=== PATIENT | female | born 1965 | race Caucasian/White ===

== ENCOUNTER 2017-04-30 11:00 | Outpatient (CLI) | payer MEDICARE, MEDICAID ==
--- NOTE | 2017-04-30 14:06 | RAD ---
CERVICAL SPINE THREE VIEWS: HISTORY: Neck pain. FINDINGS: Anterior operative fixation is in place at the C5-6 level. Metallic markers associated with interbo dy fusion material within the confines of the disk space. Minimal degenerative retrolisthesis is pr esent with posterior osteophytes/disk complex. Mild reversal of the normal lordotic curvature is ap parent on the lateral view. Cervicothoracic junction is intact. IMPRESSION: Anterior operative fixation at the lower cervical spine. POS: ALISIA
== END 2017-04-30 11:01 | disposition home or self-care (01) ==
LOC: RAD 11:00 → TBSIIMAG 11:01
PROVIDERS: ATTEND Neurological Surgery
DX: M54.12 Radiculopathy, cervical region (principal); Z98.890 Other specified postprocedural states
CPT/HCPCS: 72040

== ENCOUNTER 2017-10-10 08:29 | Inpatient (IN) | payer MEDICARE, OTHER ==
[2017-10-10 09:07] LABS: Bilirubin Small (Negative); Blood, Urine Moderate (Negative); Clarity CLOUDY (Clear); Glucose, Urine (Dipstick) Negative (Negative); Leukocyte Negative (Negative); Nitrite Negative (Negative); Protein, Urine (Dipstick) Trace mg/dL (Neg-Trace); Specific Gravity, Urine 1.025 (1.002-1.036)
[2017-10-10 09:11] LABS: Pregnancy Test - Urine (BHCG) Negative (Negative); Pregu Control Background? CLEAR/WHITE (CLR/WHITE); Pregu Control Bar Appear? YES (CONTROL BAR); Specific Gravity 1.025 (1.002-1.036)
[2017-10-10 09:19] LABS: Pathc Cast-AUWi Flag 3.92 (0-2.49)
[2017-10-10 09:22] LABS: Bacteria/HPF 1+ HPF (None Seen); Hyaline Casts/LPF 0-3 HYALINE CAST LPF (0-3 Hyaline); RBC/HPF 0-3 HPF (0-3)
[2017-10-10 09:23] LABS: Manual Microscopic Reviewed? No Path Casts Seen; Renal Epithelial 0-3 HPF (0-3); Transitional Epithelial 0-3 HPF (0-3)
[2017-10-10 09:29] LABS: #Lymphocytes 1.8 thou/uL (1.20-3.40); #Monocytes 1.2 thou/uL (0.11-0.59); #Neutrophils 13.3 thou/uL (1.40-6.50); %Basophils 0.3 % (0.0-1.0); %Eosinophils 0.3 % (0.0-10.0); %Lymphocytes 10.8 % (21.0-51.0); %Monocytes 7.3 % (0.0-10.0); %Neutrophils 81.3 % (42.0-75.0); Hemoglobin 15.5 g/dL (12.0-16.0); Mean Corpuscular HGB CONC 33.5 g/dL (32.0-36.0); Mean Corpuscular Hemoglobin 30.8 pg (27.0-31.0); Mean Corpuscular Volume 91.9 fl (81.0-99.0); Platelet Count 227 thou/uL (130-400); RBC Distribution Width 12.8 % (11.5-14.5); Red Blood Cell (RBC) Count 5.05 mill/uL (4.20-5.40); White Blood Cell (WBC) Count 16.4 thou/uL (4.8-10.8)
[2017-10-10 09:37] LABS: BHCG - Serum Negative (NEGATIVE); Pregs Control Background? CLEAR/WHITE (CLR/WHITE); Pregs Control Bar Appear? YES (CONTROL BAR)
[2017-10-10] MEDS ORDERED: Morphine 4 MG/ML VIAL ONE (09:45)
[2017-10-10 09:49] LABS: CKMB 0.7 ng/mL (0-6.6); Troponin I Less than 0.010 ng/mL (< 0.028)
[2017-10-10] MEDS ORDERED: metroNIDAZOLE 500 MG/100 ML BAG ONE (09:56)
--- NOTE | 2017-10-10 10:46 | CT ---
CONTRAST ENHANCED CT IMAGES OF ABDOMEN AND PELVIS: HISTORY: This 51-year-old presents with a history of diffuse abdominal pain. FINDINGS: Contrast-enhanced CT images of the abdomen and pelvis were obtained. IV contrast was given. The lung bases are unremarkable. No evidence of free intraperitoneal air is seen. The liver and spleen, gallbladder, and pancreas are unremarkable. Adrenal glands and kidneys are unr emarkable. There is extensive inflammatory change and thickening with surrounding pericolonic fat stranding invo lving the ascending colon, entire transverse colon, splenic flexure, and proximal portion of the desc ending colon. This is compatible with colitis. The small bowel is unremarkable. A normal appendix is visualized. Good blood flow is seen in the SM A and celiac and inferior mesenteric arteries. IMPRESSION: Extensive colonic thickening and fat stranding involving much of the proximal and mid colon compatibl e with colitis. Findings called to Dr. Jonas in the emergency room department at 9:38 a.m. on 10/10/17. CODE CR POS: ALISIA
[2017-10-10] MEDS ORDERED: Sodium Chloride 0.9% 1,000 ML IV SCH (11:43)
[2017-10-10] MEDS ORDERED: Ondansetron ODT 4 MG TAB SL PRN (11:43)
[2017-10-10] MEDS ORDERED: Ondansetron HCl/PF 4 MG/2 ML Vial IVP PRN ×2 (11:43→13:08)
[2017-10-10] MEDS ORDERED: Acetaminophen/Codeine 30-300mg Tablet PO PRN (13:08)
[2017-10-10] MEDS ORDERED: Acetaminophen 325 MG TAB PO PRN (13:08)
[2017-10-10] MEDS ORDERED: Guaifenesin DM 100-10/5 ML UDCUP PO PRN (13:08)
[2017-10-10] MEDS: Sodium Chloride 0.9% 1,000 ML IV SCH (13:28)
[2017-10-10] MEDS: Ondansetron ODT 4 MG TAB PO PRN ×2 (13:36→19:48)
[2017-10-10 13:38] VITALS: BMI 42.5
[2017-10-10] MEDS ORDERED: metroNIDAZOLE 500 MG in Premix Bag 1 BAG IVPB SCH ×2 (14:00→18:00)
--- NOTE | 2017-10-10 14:08 | HP ---
REASON FOR ADMISSION: Colitis. HISTORY OF PRESENT ILLNESS: The patient gives history of having abdominal pain which started 2 days back. This is more in the upper quadrants, but now has moved to all four quadrants. The pain was co nstant 4-5/10 in intensity but went up to 10/10 this morning. She has had one episode of vomiting ye day, but none today. She has felt feverish with chills. No complaints of chest pain, palpitatio n, PND or orthopnea. Had one loose stool this morning with no blood or mucus in it. PAST MEDICAL AND SURGICAL HISTORY: History of fibromyalgia, history of aneurysm in the brain for i ch she closely follows up with Dr. Fernandez, hypertension, obesity, anterior cervical diskectomy and fus ion of C5-C6 done in 02/2017, right knee replacement and tubal ligation. CURRENT MEDICATIONS: Protonix 40 mg p.o. at bedtime, Savella 100 mg p.o. daily, metoprolol extended release 50 mg p.o. daily, Soma p.r.n., Amitiza 8 mcg p.r.n., Tylenol with Codeine #3 at bedtime, Vent chantell inhaler q.4 hourly p.r.n. ALLERGIES: DICLOFENAC, LISINOPRIL, TIZANIDINE, ULTRAM. PERSONAL HISTORY: Smokes 5-6 cigarettes a day. Does not abuse alcohol or drugs. FAMILY HISTORY: Mother in her 60s. She was on dialysis. She does not know much about her [facility] er who apparently when she was 3 months old from liver complications. REVIEW OF SYSTEMS: The following complete review of systems was negative, unless otherwise mentioned in the HPI or below: Constitutional: Weight loss or gain, ability to conduct usual activities. Skin: Rash, itching. Eyes: Double vision, pain. ENT/Mouth: Nose bleeding, neck stiffness, pain, tenderness. Cardiovascular: Palpitations, dyspnea on exertion, orthopnea. Respiratory: Shortness of breath, wheezing, cough, hemoptysis, fever or night sweats. Gastrointestinal: Poor appetite, abdominal pain, heartburn, nausea, vomiting, constipation, or diarr hea. Genitourinary: Urgency, frequency, dysuria, nocturia. Musculoskeletal: Pain, swelling. Neurologic/Psychiatric: Anxiety, depression. Allergy/Immunologic: Skin rash, bleeding tendency. PHYSICAL EXAMINATION: GENERAL: The patient is a 51-year-old female who is currently in mild to moderate distress from abdo martin pain. VITAL SIGNS: Blood pressure 134/66, pulse 90 per minute, respiratory rate 18 per minute, temperature 97.9 degrees Fahrenheit, and saturating 98% on room air. NECK: Supple, no elevated JVD. EYES: Extraocular muscles intact. Pupils reacting to light. ORAL CAVITY: Mucous membranes are dry. No exudates or congestion. CARDIOVASCULAR SYSTEM: S1, S2 heard. Regular rhythm. RESPIRATORY SYSTEM: Air entry 1+ bilaterally. No rales or rhonchi. ABDOMEN: Soft. There is mild tenderness in all quadrants. No rigidity or guarding. Patient has vo luntary guarding. Bowel sounds are heard. EXTREMITIES: No peripheral edema or calf tenderness. VASCULAR SYSTEM: Peripheral pulses 1+ bilateral, no ischemic ulcerations or gangrene. CENTRAL NERVOUS SYSTEM: No gross focal deficits seen. Patient is alert, awake, oriented well. PSYCHIATRIC SYSTEM: The patient's mood is euthymic. No hallucinations or delusions. IMAGING DATA AND LABORATORY DATA: EKG done shows sinus rhythm at 102 beats per minute. White count of 16 , hemoglobin and hematocrit 15 and 46, platelet count 227, MCV is 91 with 81% neutrophils, lact ic acid 1.3. First set of cardiac enzymes are negative. Lipase is 15. test is negative. UA shows 1+ bacteria. CT of the abdomen and pelvis done shows extensive colonic thickening and fat stranding involving much of the proximal and mid colon compatible with colitis. CLINICAL IMPRESSION AND PLAN: The patient will be admitted to telemetry for acute colitis. Her init ial EKG was apparently suspicious for atrial flutter, but appears to be in sinus rhythm. We will obt ain blood cultures and stool cultures. She will be placed on Cipro and Flagyl for now and gentle IV hydration. The patient will be on clear liquid diet until her abdominal pain resolves. GI consultat ion with Dr. Thompson will be requested. The patient is requesting a higher dose of morphine or better p ain medication. She has received 8 mg of morphine in the ER with very little relief for her pain. W e will continue to closely monitor her on telemetry for today and will be transferred to [facility] in a.m. if her telemetry does not reveal any arrhythmias.
[2017-10-10 14:32] LABS: Anion Gap 15 mmol/L (10-20); BUN (Urea Nitrogen) 12 mg/dL (7.0-18.7); Calc. Creatinine Clearance 179 mL/min (70-130); Carbon Dioxide 22 mmol/L (22-29); Chloride 103 mmol/L (98-107); Estimated GFR-MDRD 90; Glucose 104 mg/dL (70-105); Sodium 136 mmol/L (136-145)
[2017-10-10] MEDS: Ketorolac Tromethamine 30 MG/ML VIAL IVP PRN ×2 (14:37→21:22)
[2017-10-10] MEDS: Morphine 4 MG/ML VIAL SLOW IVP PRN ×2 (15:33→21:19)
[2017-10-10] MEDS ORDERED: ISOVUE-370 76%-LOCM 1 ML ONE (16:31)
[2017-10-10] MEDS: metroNIDAZOLE 500 MG in Premix Bag 1 BAG IVPB SCH (17:10)
--- NOTE | 2017-10-10 18:31 | CON ---
DATE OF CONSULTATION: 10/10/2017. PRIMARY PILOT MANAGER: Vicki Porter M.D. REASON FOR CONSULTATION: Atrial flutter. HISTORY OF PRESENT ILLNESS: Ms. Silva is a very pleasant 51-year-old white female who comes to the ospital for abdominal pain. She was diagnosed with acute colitis and admitted for this. During her admission, an EKG was done that was suspicious for atrial flutter, so Cardiology has been consulted f or this. On my evaluation, Ms. Silva is an antalgic position. She does not even want to move becaus e she is hurting so much in her belly. She had seen Dr. Porter and follows up with her for episodes of palpitations and high blood pressure. She has never been monitored as she had refused monitoring in the past. PAST MEDICAL HISTORY: 1. Fibromyalgia. 2. Brain aneurysm, followed by Dr. Fernandez. 3. Hypertension. 4. Obesity. PAST SURGICAL HISTORY: 1. Cervical diskectomy fusion of C5-C6. 2. Right knee replacement. 3. Tubal ligation. OUTPATIENT MEDICATIONS: 1. Protonix 40 mg a day. 2. Savella 100 mg daily. 3. Metoprolol 50 mg daily. 4. Soma p.r.n. 5. Amitiza. 6. Tylenol with codeine p.r.n. 7. Ventolin inhaler. ALLERGIES: 1. DICLOFENAC. 2. LISINOPRIL. 3. TIZANIDINE. 4. ULTRAM. SOCIAL HISTORY: 5-6 cigarettes a day. No alcohol or drug use. FAMILY HISTORY: Mother with dialysis done in her 60s. Father of liver issues. REVIEW OF SYSTEMS: A 12-point review of systems was done and is all negative unless stated in the h istory of present illness. PHYSICAL EXAMINATION: VITAL SIGNS: Temperature 98.7, pulse 98, respiration rate 16, satting 99% on room air, blood pressur e 138/58. GENERAL: Awake, alert, oriented x3, in no distress. HEENT: Normocephalic and atraumatic. NECK: Supple. LUNGS: Lungs are clear. CARDIOVASCULAR: S1, S2, no S3, S4, no murmurs, no rubs, no gallop. ABDOMEN: Abdomen is tender to palpation with no rebound or guarding. Positive bowel sounds. EXTREMITIES: No edema. SKIN: Warm and dry. LABORATORY WORK: Reviewed. CBC with a white count of 16, 81% neutrophils. Chemistries were unremar kable. Troponin less than assay limit x1. Amylase was 20, lipase was 15. test was negati ve. UA showed moderate blood, trace ketones, small amount of bilirubin, 7-10 white cells, 7-10 squam ous epithelial cells, 1+ bacteria. The EKGs that I was able to review in the chart are all of sinus rhythm and sinus tachycardia. I hav e not seen one with atrial flutter. Other EKGs may not be in the chart at this time, but so far neit her telemetry nor the EKGs that I have been able to see have shown atrial flutter. ASSESSMENT AND PLAN: 1. Tachycardia: Sinus tachycardia on EKG on telemetry. No evidence of flutter on the EKGs reviewed . May need to find EKGs that were referred to as possibly being in atrial flutter to further evaluat e. 2. Acute colitis per primary team. Thank you for letting us to participate in the care of your patient. We will follow.
[2017-10-10] MEDS ORDERED: GoLYTELY 4,000 ml Bottle PO SCH (19:00)
[2017-10-10] MEDS: Docusate 100 MG CAP PO SCH (20:07)
[2017-10-10] MEDS ORDERED: MILNACIPRAN HCL 100 MG PO SCH (21:00)
[2017-10-10] MEDS: Famotidine 20 MG TAB PO SCH (21:17)
[2017-10-10] MEDS: Metoprolol Tartrate 50 MG TAB PO SCH (21:18)
[2017-10-10] MEDS ORDERED: Promethazine HCl 12.5 MG in Sodium Chloride 0.9% 50 ML IVPB SCH (23:00)
--- NOTE | 2017-10-11 00:19 | CON ---
DATE OF CONSULTATION: 10/10/2017 HISTORY OF PRESENT ILLNESS: Patient is a 51-year-old female who presents with a 48-hour hi story of abdominal pain. She says this is all over, there involves both upper and lower abdomen. Jeremiah nguyen says it radiates through to her back. She has had no nausea, vomiting, really no change in her bow el function. Her baseline bowel function is typically loose stools, alternating with hard stools. S he has had no blood in her stool. She denies any travel outside the country, any recent antibiotics. She has not had prior GI problems, no prior GI evaluation. She takes Tylenol No.3 for chronic lowe r back pain. PAST MEDICAL HISTORY: Includes fibromyalgia, brain aneurysm, hypertension, obesity. PAST SURGICAL HISTORY: Includes a tubal ligation, knee surgery, cervical spine surgery. MEDICATIONS: Include Soma 350 mg p.o. at bedtime, Tylenol No.3 one p.o. t.i.d., Savella 100 mg p.o. at bedtime, Lopressor 50 mg p.o. daily, Amitiza 8 mcg p.o. b.i.d., pantoprazole 40 mg p.o. at bedtime . ALLERGIES: Include DICLOFENAC, LISINOPRIL, TIZANIDINE, and TRAMADOL. SOCIAL HISTORY: She smokes 1/3 of a pack per day. No alcohol. FAMILY HISTORY: Negative for GI or liver disease. REVIEW OF SYSTEMS: Constitutional: No fever or chills, no weight loss. Eyes: No blurred vision or double vision. ENT: No sore throat or earaches. Cardiovascular: No chest pain or palpitations. Pulmonary: No shortness of breath, cough, or wheezing. Gastrointestinal: See above. Genitourinary : No hematuria or dysuria. Musculoskeletal: No joint pain or muscle weakness. Skin: No rashes. Neurologic: No numbness or seizure activity. PHYSICAL EXAMINATION: GENERAL: Shows obese female in no acute distress. VITAL SIGNS: Temperature 98.7, pulse 98, respirations 16, blood pressure 138/58. HEENT: Unremarkable. NECK: Supple. CHEST: Clear. CARDIOVASCULAR: Regular rate and rhythm. ABDOMEN: Soft. Diffusely tender without rebound or guarding. Bowel sounds are present and normoact wilfredo. RECTAL: Deferred. EXTREMITIES: Normal. NEUROLOGIC: Nonfocal. LABORATORY AND DIAGNOSTIC DATA: Shows a white blood cell count of 16.4, hemoglobin 15.5, hematocrit 46.4. Chemistries are essentially normal. Urinalysis shows moderate blood, 7-10 wbc's, 7-10 squamou s. Urine is negative. CT of the abdomen and pelvis shows extensive colonic thickening and fat stranding involving much of the proximal and mid colon compatible with colitis. ASSESSMENT: 1. Colitis-suspect either ischemic colitis or infectious colitis. 2. Chronic low back pain, on Tylenol No.3 and Soma. RECOMMENDATION: Colonoscopy in a.m.
[2017-10-11] MEDS: Ondansetron ODT 4 MG TAB PO PRN ×4 (02:08→21:03)
[2017-10-11] MEDS: Morphine 4 MG/ML VIAL SLOW IVP PRN ×4 (02:09→18:51)
[2017-10-11] MEDS: metroNIDAZOLE 500 MG in Premix Bag 1 BAG IVPB SCH ×3 (02:12→17:48)
[2017-10-11] MEDS: Sodium Chloride 0.9% 1,000 ML IV SCH ×3 (05:00→17:50)
[2017-10-11 05:12] LABS: #Eosinphils 0.1 thou/uL (0.0-0.7); #Monocytes 0.9 thou/uL (0.11-0.59); #Neutrophils 5.2 thou/uL (1.40-6.50); %Eosinophils 1.1 % (0.0-10.0); %Lymphocytes 24.3 % (21.0-51.0); %Monocytes 11.4 % (0.0-10.0); %Neutrophils 63.2 % (42.0-75.0); Mean Corpuscular HGB CONC 33.2 g/dL (32.0-36.0); Mean Corpuscular Hemoglobin 30.9 pg (27.0-31.0); Mean Corpuscular Volume 93.2 fl (81.0-99.0); Mean Platelet Volume 8.4 fL (7.4-10.4); Platelet Count 200 thou/uL (130-400); RBC Distribution Width 12.7 % (11.5-14.5); Red Blood Cell (RBC) Count 4.21 mill/uL (4.20-5.40); White Blood Cell (WBC) Count 8.2 thou/uL (4.8-10.8)
[2017-10-11 05:31] LABS: Anion Gap 11 mmol/L (10-20); BUN (Urea Nitrogen) 10 mg/dL (7.0-18.7); Calc. Creatinine Clearance 179 mL/min (70-130); Calcium 8.9 mg/dL (7.8-10.44); Carbon Dioxide 25 mmol/L (22-29); Chloride 104 mmol/L (98-107); Estimated GFR-MDRD 89; Glucose 89 mg/dL (70-105); Potassium 4.2 mmol/L (3.5-5.1); Sodium 136 mmol/L (136-145)
[2017-10-11] MEDS ORDERED: Sodium Chloride 0.9% 10 ML ONE (07:02)
[2017-10-11] MEDS: Ketorolac Tromethamine 30 MG/ML VIAL IVP PRN ×3 (07:12→18:51)
[2017-10-11] MEDS: Docusate 100 MG CAP PO SCH ×2 (09:09→21:05)
[2017-10-11] MEDS: Famotidine 20 MG TAB PO SCH ×2 (09:09→19:54)
[2017-10-11] MEDS: Enoxaparin Sodium 40 MG/0.4 ML SYRINGE SC SCH (09:10)
--- NOTE | 2017-10-11 11:17 | PDOC.PN ---
- Subjective Encounter Start Date: 10/11/17 Encounter Start Time: 09:00 Subjective: still has epigstric pain but better -: is not drinking golytely and feels nauseous - Objective Resuscitation Status: Resuscitation Status FULL:Full Resuscitation MAR Reviewed: Yes Vital Signs & Weight: Vital Signs (12 hours) Temp Pulse Resp BP Pulse Ox 10/11/17 08:00 97.9 F 63 16 98 10/11/17 04:00 97.6 F 61 13 119/58 L 96 10/10/17 23:31 62 16 107/54 L 95 Weight Weight 259 lb 8 oz I&O: 10/10/17 10/11/17 10/12/17 06:59 06:59 06:59 Intake Total 3699 Output Total 1950 Balance 1749 Result Diagrams: 10/11/17 04:48 10/11/17 04:48 Phys Exam - Physical Examination HEENT: PERRLA, moist MMs Neck: no JVD, supple Respiratory: no wheezing, no rales Cardiovascular: RRR, no significant murmur Gastrointestinal: soft, no distention, positive bowel sounds no rigidity or guarding Musculoskeletal: no edema, pulses present Neurological: non-focal, moves all 4 limbs Psychiatric: normal affect, A&O x 3 Dx/Plan (1) Colitis Code(s): K52.9 - NONINFECTIVE GASTROENTERITIS AND COLITIS, UNSPECIFIED Status : Acute (2) HTN (hypertension) Code(s): I10 - ESSENTIAL (PRIMARY) HYPERTENSION Status: Chronic Qualifiers: Hypertension type: essential hypertension Qualified Code(s): I10 - Essential (primary) hypertension (3) Fibromyalgia Status: Chronic (4) Obesity Code(s): E66.9 - OBESITY, UNSPECIFIED Status: Chronic Qualifiers: Obesity classification: adult class 3 (BMI >= 40) Body mass index: BMI 40.0 -44.9 - Plan on cipro and flagyl -: gentle iv hydration, is on toradol and morphine prn -: telemetry shows no arrhythmia, tx to med floor -: likely colonoscopy in am as she didnt finish golytely prep -: stoolx1 is +ve for campylobacter, no cdiff * . Review of Systems - Medications/Allergies Allergies/Adverse Reactions: Allergies Allergy/AdvReac Type Severity Reaction Status Date / Time diclofenac Allergy Verified 03/12/17 10:28 lisinopril Allergy muscle Verified 03/12/17 09:54 spasm tizanidine Allergy Verified 03/12/17 10:28 tramadol Allergy Verified 03/12/17 10:28 Medications: Current Medications Acetaminophen (Tylenol) 650 mg PO Q4H PRN PRN Reason: Headache/Fever or Pain Acetaminophen/Codeine Phosphate (Tylenol #3) 1 tab PO TIDPRN PRN PRN Reason: pain Docusate Sodium (Colace) 100 mg PO BID [facility] Last Admin: 10/11/17 09:09 Dose: 100 mg Enoxaparin Sodium (Lovenox) 40 mg SC 0900 [facility] Last Admin: 10/11/17 09:10 Dose: 40 mg Famotidine (Pepcid) 20 mg PO BID [facility] Last Admin: 10/11/17 09:09 Dose: 20 mg Guaifenesin/Dextromethorphan (Robitussin Dm) 15 ml PO Q4H PRN PRN Reason: Cough Ciprofloxacin/Dextrose 400 mg/ (Device) 200 mls @ 200 mls/hr IVPB Q12HR [facility] Last Admin: 10/11/17 09:07 Dose: 200 mls Sodium Chloride (Normal Saline 0.9%) 1,000 mls @ 70 mls/hr IV .[id number] [facility] Last Admin: 10/11/17 05:00 Dose: 1,000 mls Metronidazole 500 mg/ Device 100 mls @ 100 mls/hr IVPB 0200,1000,1800 [facility] Last Admin: 10/11/17 09:12 Dose: 100 mls Ketorolac Tromethamine (Toradol) 15 mg IVP Q6H PRN PRN Reason: Pain Stop: 10/15/17 13:48 Last Admin: 10/11/17 07:12 Dose: 15 mg Metoprolol Tartrate (Lopressor) 50 mg PO HS [facility] Last Admin: 10/10/17 21:18 Dose: 50 mg Morphine Sulfate (Morphine) 2 mg SLOW IVP Q4H PRN PRN Reason: Chest Pain/BP Elevations Last Admin: 10/11/17 07:10 Dose: 2 mg Ondansetron HCl (Zofran Odt) 4 mg PO Q6H PRN PRN Reason: Nausea/Vomiting Last Admin: 10/11/17 07:11 Dose: 4 mg (Milnacipran Hcl [ (Savella] 100 Mg)) 1 each PO HS [facility]
--- NOTE | 2017-10-11 12:46 | PRG ---
DATE OF SERVICE: 10/11/2017 SUBJECTIVE: The patient did not drink much of her prep last night. She reports it causes nausea. H er abdominal pain is slightly better. OBJECTIVE: VITAL SIGNS: Temperature 97.6, pulse 61, respiratory rate 13, blood pressure 119/58. HEENT: Unremarkable. CHEST: Clear. CARDIOVASCULAR: Regular rate and rhythm. ABDOMEN: Tender, without organomegaly or masses. LABORATORY DATA: Shows a white blood cell count of 8.2, hemoglobin 13, hematocrit 39.3. BMP is norm al. ASSESSMENT: 1. Colitis. 2. Tachycardia - resolved. 3. Chronic low back pain on Tylenol No. 3 and Soma. RECOMMENDATIONS: 1. Continue prep today. 2. Colonoscopy in a.m.
--- NOTE | 2017-10-11 17:18 | PDOC.CTH ---
Cardiology Progress Note - Subjective No arrhythmias seen on telemetry. Her pain is better controlled. - Objective Vital Signs Temp Pulse Resp BP BP Pulse Ox 10/11/17 15:10 97.8 F 57 L 16 139/75 100 10/11/17 11:47 97.8 F 62 16 123/58 L 97 10/11/17 08:00 97.9 F 63 16 144/62 H 98 Weight 259 lb 8 oz 10/10/17 10/11/17 10/12/17 06:59 06:59 06:59 Intake Total 3699 Output Total 1950 Balance 1749 - Physical Examination General/Neuro: alert & oriented x3 Neck: no JVD present Lungs: CTA, unlabored respirations Heart: RRR Abdomen: NT/ND Extremities: other: (no edema) - Telemetry Telemetry Rhythm: NSR, stach - Labs Result Diagrams: 10/11/17 04:48 10/11/17 04:48 Troponin/CKMB CK-MB (CK-2) 0.7 ng/mL (0-6.6) 10/10/17 09:19 Troponin I Less than 0.010 ng/mL (< 0.028) 10/10/17 09:19 - Assessment/Plan 1. Acute infectious colitis 2. tachycardia. I have not seen evidence of Aflutter. PLAN: - CV stable.
[2017-10-11] MEDS ORDERED: Promethazine HCl 12.5 MG in Sodium Chloride 0.9% 50 ML IVPB SCH (21:00)
[2017-10-11] MEDS: Metoprolol Tartrate 50 MG TAB PO SCH (21:05)
[2017-10-12] MEDS: Morphine 4 MG/ML VIAL SLOW IVP PRN ×4 (00:25→17:27)
[2017-10-12] MEDS: Ketorolac Tromethamine 30 MG/ML VIAL IVP PRN ×3 (00:26→12:25)
[2017-10-12] MEDS: metroNIDAZOLE 500 MG in Premix Bag 1 BAG IVPB SCH (02:26)
[2017-10-12] MEDS: Ondansetron ODT 4 MG TAB PO PRN ×3 (02:41→17:38)
[2017-10-12] MEDS ORDERED: Ondansetron HCl/PF 4 MG/2 ML Vial IVP PRN ×2 (08:48)
[2017-10-12] MEDS ORDERED: Promethazine HCl 25 MG/ML VIAL SLOW IVP PRN ×2 (08:48)
[2017-10-12] MEDS ORDERED: Promethazine HCl 25 MG/ML VIAL IM PRN ×2 (08:48)
--- NOTE | 2017-10-12 09:16 | OP ---
PREOPERATIVE DIAGNOSES: 1. Abnormal CT of the colon. 2. Generalized abdominal pain. 3. Positive Campylobacter antigen. DESCRIPTION OF PROCEDURE: After informed consent was obtained, the patient placed in left lateral de cubitus position. Anesthesia was administered per the Anesthesia Department. Forward viewing endosc ope was inserted into rectum after perianal inspection and rectal exam were normal and passed to the cecum with ease. It was also passed into the ileum. The terminal ileum was normal. The cecum, asce nding, transverse were diffusely erythematous with some granularity. Biopsies were taken from this a osman. The proximal descending was slightly involved, but the distal descending, sigmoid, and rectum w ere uninvolved. Biopsies were also taken from the left colon. Diffuse diverticulosis coli were note d. Retroflexion in rectum was normal. ASSESSMENT: 1. Right-sided colitis involving the cecum, ascending and transverse - status post biopsy, probably ischemia versus infectious; mild. 2. Diffuse diverticulosis coli. 3. Normal terminal ileum. RECOMMENDATIONS: 1. Await histopathology. 2. Stable for discharge from gastrointestinal standpoint once patient is tolerating a diet. 3. Consider treatment for Campylobacter.
[2017-10-12] MEDS: Docusate 100 MG CAP PO SCH (09:24)
[2017-10-12] MEDS: Enoxaparin Sodium 40 MG/0.4 ML SYRINGE SC SCH (09:24)
[2017-10-12] MEDS: Sodium Chloride 0.9% 1,000 ML IV SCH (09:51)
[2017-10-12] MEDS: Famotidine 20 MG TAB PO SCH (09:52)
[2017-10-12 11:31] VITALS: BP 133/64; TEMP 97.7
--- NOTE | 2017-10-12 14:09 | PDOC.PN ---
- Subjective Encounter Start Date: 10/12/17 Encounter Start Time: 12:00 Subjective: no sob or nausea - Objective Resuscitation Status: Resuscitation Status FULL:Full Resuscitation MAR Reviewed: Yes Vital Signs & Weight: Vital Signs (12 hours) Temp Pulse Resp BP BP BP Pulse Ox 10/12/17 11:25 97.7 F 92 16 133/64 94 L 10/12/17 09:38 97.9 F 59 L 16 142/68 H 99 10/12/17 08:00 97.9 F 59 L 16 99 10/12/17 07:05 97.9 F 83 18 114/79 99 10/12/17 05:54 97.6 F 62 18 102/63 99 Weight Weight 259 lb 8 oz I&O: 10/11/17 10/12/17 10/13/17 06:59 06:59 06:59 Intake Total 3699 3030 Output Total 1950 Balance 1749 3030 Result Diagrams: 10/11/17 04:48 10/11/17 04:48 Phys Exam - Physical Examination HEENT: PERRLA, moist MMs Neck: no JVD, supple Respiratory: no wheezing, no rales Cardiovascular: RRR, no significant murmur Gastrointestinal: soft, no distention, positive bowel sounds Musculoskeletal: no edema, pulses present Neurological: non-focal, moves all 4 limbs Psychiatric: A&O x 3 Dx/Plan (1) Colitis Code(s): K52.9 - NONINFECTIVE GASTROENTERITIS AND COLITIS, UNSPECIFIED Status : Acute (2) HTN (hypertension) Code(s): I10 - ESSENTIAL (PRIMARY) HYPERTENSION Status: Chronic Qualifiers: Hypertension type: essential hypertension Qualified Code(s): I10 - Essential (primary) hypertension (3) Fibromyalgia Status: Chronic (4) Obesity Code(s): E66.9 - OBESITY, UNSPECIFIED Status: Chronic Qualifiers: Obesity classification: adult class 3 (BMI >= 40) Body mass index: BMI 40.0 -44.9 - Plan on cipro, flagyl -: colonoscopy results reviewed with -: dc iv pain meds -: dc plan when tolerating oral diet either today/am -: to amb as tolerated * . Review of Systems - Medications/Allergies Allergies/Adverse Reactions: Allergies Allergy/AdvReac Type Severity Reaction Status Date / Time diclofenac Allergy Verified 03/12/17 10:28 lisinopril Allergy muscle Verified 03/12/17 09:54 spasm tizanidine Allergy Verified 03/12/17 10:28 tramadol Allergy Verified 03/12/17 10:28 Medications: Current Medications Acetaminophen (Tylenol) 650 mg PO Q4H PRN PRN Reason: Headache/Fever or Pain Acetaminophen/Codeine Phosphate (Tylenol #3) 1 tab PO TIDPRN PRN PRN Reason: pain Docusate Sodium (Colace) 100 mg PO BID [facility] Last Admin: 10/12/17 09:24 Dose: Not Given Enoxaparin Sodium (Lovenox) 40 mg SC 0900 [facility] Last Admin: 10/12/17 09:24 Dose: Not Given Famotidine (Pepcid) 20 mg PO BID [facility] Last Admin: 10/12/17 09:52 Dose: Not Given Guaifenesin/Dextromethorphan (Robitussin Dm) 15 ml PO Q4H PRN PRN Reason: Cough Sodium Chloride (Normal Saline 0.9%) 1,000 mls @ 70 mls/hr IV .[id number] [facility] Last Admin: 10/12/17 09:51 Dose: Not Given Ketorolac Tromethamine (Toradol) 15 mg IVP Q6H PRN PRN Reason: Pain Stop: 10/15/17 13:48 Last Admin: 10/12/17 12:25 Dose: 15 mg Metoprolol Tartrate (Lopressor) [address] [facility] Last Admin: 10/11/17 21:05 Dose: Not Given Morphine Sulfate (Morphine) 2 mg SLOW IVP Q4H PRN PRN Reason: Chest Pain/BP Elevations Last Admin: 10/12/17 12:26 Dose: 2 mg Ondansetron HCl (Zofran Odt) 4 mg PO Q6H PRN PRN Reason: Nausea/Vomiting Last Admin: 10/12/17 12:27 Dose: 4 mg (Milnacipran Hcl [ (Savella] 100 Mg)) [address] [facility]
[2017-10-12] MEDS ORDERED: Lidocaine 1% PF 5 ML VIAL ONE (16:08)
[2017-10-12] MEDS ORDERED: PROPOFOL 200 MG/20 ML VIAL ONE (16:08)
--- NOTE | 2017-10-12 18:12 | PDOC.CTH ---
<Stephanie Munoz - Last Filed: 10/12/17 18:08> Cardiology Progress Note - Subjective The pt seen and examined. No overnight events. No cardiac complaints. - Objective Vital Signs Temp Pulse Resp BP BP Pulse Ox 10/12/17 11:25 97.7 F 92 16 133/64 94 L 10/12/17 09:38 97.9 F 59 L 16 142/68 H 99 10/12/17 08:00 97.9 F 59 L 16 99 10/12/17 07:05 97.9 F 83 18 114/79 99 Weight 259 lb 8 oz 10/11/17 10/12/17 10/13/17 06:59 06:59 06:59 Intake Total 3699 3030 Output Total 1950 Balance 1749 3030 - Physical Examination General/Neuro: alert & oriented x3 Neck: no JVD present Lungs: CTA Heart: RRR Abdomen: soft Extremities: other: (peripheral cyanosis to bilat toes Rt>Lt) - Labs Result Diagrams: 10/11/17 04:48 10/11/17 04:48 Troponin/CKMB CK-MB (CK-2) 0.7 ng/mL (0-6.6) 10/10/17 09:19 Troponin I Less than 0.010 ng/mL (< 0.028) 10/10/17 09:19 - Assessment/Plan 1. Hx of Tachycardia - No evidence of Aflutter; cont. to monitor; Education of symptoms of Afib/Aflutter given to the pt and family 2. Rt side colitis with possible ischemia vs infectious - stable and tolerate diet; managed by GI 3. HTN - stable; cont. current med 4. peripheral cyanosis to bilat toes - 2+ pulses to dorsalis pedis and popliteal ; 1+ pulses to posterior tibial. May need atrial study as outpt. MAR reviewed * The pt is stable to d/c home today. She will f/u with Dr Porter office within 4 -6 wks with possible Atrial study. * Echo result is pending. Review of Systems - Review of Systems Constitutional: reports: no symptoms reported EENTM: reports: no symptoms reported Respiratory: reports: no symptoms reported Cardiac (ROS): reports: no symptoms reported ABD/GI: reports: no symptoms reported : reports: no symptoms reported Musculoskeletal: reports: no symptoms reported <Vince Porter - Last Filed: 10/12/17 23:44> Cardiology Progress Note - Objective Weight 259 lb 8 oz 10/11/17 10/12/17 10/13/17 06:59 06:59 06:59 Intake Total 3699 3030 700 Output Total 1950 Balance 1749 3030 700 - Labs Result Diagrams: 10/11/17 04:48 10/11/17 04:48 Troponin/CKMB CK-MB (CK-2) 0.7 ng/mL (0-6.6) 10/10/17 09:19 Troponin I Less than 0.010 ng/mL (< 0.028) 10/10/17 09:19 - Assessment/Plan I agree with the A/P by the [employer]. She will f/u for an ARTERIAL study as an outpt.
--- NOTE | 2017-10-13 14:16 | DIS ---
DATE OF ADMISSION: 10/10/2017 DATE OF DISCHARGE: 10/12/2017 DISCHARGE DISPOSITION: To home. PRIMARY DISCHARGE DIAGNOSIS: Acute colitis. SECONDARY DISCHARGE DIAGNOSES: Hypertension, fibromyalgia, obesity. PROCEDURES DONE DURING HOSPITALIZATION: Abdominal and pelvic CAT scan done showed findings of extens wilfredo colonic thickening and fat stranding involving much of the proximal and mid colon compatible with colitis. Colonoscopy done by Dr. Thompson on 10/12/2017 showed right-sided colitis involving the cecum, ascending and transverse status post biopsy; probably ischemia versus infectious, mild; diffuse dive rticulosis coli; normal terminal ileum. Echo with 2D Doppler showed an EF of 55%-60%. Stool for C. diff was negative. Blood cultures x2 no growth. Urine culture no growth. Campylobacter antigen was positive in the stool. E. coli, Shiga toxin 1 and 2 were negative. Had a white count of 16 with di scharge numbers of 8. INPATIENT CONSULTS: Dr. Thompson for Gastroenterology. DISCHARGE MEDICATIONS: Levaquin 500 mg p.o. daily for 7 days, Colace 100 mg twice daily, Bentyl 20 m g p.o. 4 times daily p.r.n. for abdominal colic, Soma 350 mg p.o. at bedtime, Amitiza 8 mcg p.o. twic e daily p.r.n., Lopressor 50 mg p.o. daily, milnacipran 100 mg p.o. at bedtime, Protonix 40 mg p.o. a t bedtime. ALLERGIES: DICLOFENAC, LISINOPRIL, TIZANIDINE and TRAMADOL. DISCHARGE PLAN: The patient to follow up with primary care physician in 1 week. BRIEF COURSE DURING HOSPITALIZATION: The patient initially came to ER on the with complaints of abdominal pain which started 2 days prior to arrival. Her initial CAT scan revealed finding suggest wilfredo of colitis in the proximal colon. She has had gastroenterology consultation with Dr. Thompson. Stoo l studies were positive for Campylobacter antigen, otherwise negative for C. diff and E. coli, Shiga toxin. Colonoscopy revealed findings of inflammation in the proximal colon. The patient was kept n. p.o. for initial 36 hours and was fed liquid diet, later solid diet. She has been tolerating solid d iet and has been cleared by Gastroenterology for discharge. [facility].
== END 2017-10-12 18:22 | disposition home or self-care (01) | DRG 372 ==
LOC: ERS 08:29 → 2NO 08:41 → T4-B 10-11 15:02
PROVIDERS: ADMIT Internal Medicine; ATTEND Internal Medicine
PROC: 0DBG8ZX Excision of Left Large Intestine, Via Natural or Artificial Opening Endoscopic, Diagnostic (ICD-10-PCS; principal; 2017-10-12)
PROC: 0DBF8ZX Excision of Right Large Intestine, Via Natural or Artificial Opening Endoscopic, Diagnostic (ICD-10-PCS; 2017-10-12)
DX: A04.5 Campylobacter enteritis (principal); Z68.41 Body mass index [BMI] 40.0-44.9, adult; I67.1 Cerebral aneurysm, nonruptured; K51.00 Ulcerative (chronic) pancolitis without complications; E66.9 Obesity, unspecified; I10 Essential (primary) hypertension; R23.0 Cyanosis; R00.0 Tachycardia, unspecified; M79.7 Fibromyalgia; F17.210 Nicotine dependence, cigarettes, uncomplicated; K57.30 Diverticulosis of large intestine without perforation or abscess without bleeding; G89.29 Other chronic pain; M54.5 Low back pain
CPT/HCPCS: 36415; 74177; 80048; 81003; 81015; 81025; 82150; 82550; 82553; 83605; 83690; 84484; 84703; 85025; 87040; 87045; 87046; 87086; 87324; 87449; 87899; 88305; 93005; 93306; 96365; 96368; 96375; A4216; J0744; J1650; J1885; J1956; J2001; J2270; J2550; J2704; J7050; Q0162

== ENCOUNTER 2017-11-06 06:57 | Inpatient (IN) | payer MEDICARE, OTHER ==
[2017-11-06 08:55] LABS: #Eosinphils 0.1 thou/uL (0.0-0.7); #Lymphocytes 2.1 thou/uL (1.20-3.40); #Monocytes 1.2 thou/uL (0.11-0.59); #Neutrophils 9.6 thou/uL (1.40-6.50); %Basophils 0.3 % (0.0-1.0); %Eosinophils 0.9 % (0.0-10.0); %Lymphocytes 15.9 % (21.0-51.0); %Neutrophils 73.9 % (42.0-75.0); Hemoglobin 13.9 g/dL (12.0-16.0); Mean Corpuscular HGB CONC 33.4 g/dL (32.0-36.0); Mean Corpuscular Hemoglobin 30.9 pg (27.0-31.0); Mean Corpuscular Volume 92.6 fl (81.0-99.0); Mean Platelet Volume 8.1 fL (7.4-10.4); Platelet Count 219 thou/uL (130-400); RBC Distribution Width 12.6 % (11.5-14.5); Red Blood Cell (RBC) Count 4.49 mill/uL (4.20-5.40)
[2017-11-06] MEDS ORDERED: Morphine 4 MG/ML VIAL ONE (09:06)
[2017-11-06] MEDS ORDERED: metroNIDAZOLE 500 MG/100 ML BAG ONE (09:07)
[2017-11-06 09:29] LABS: ALT (SGPT) 22 U/L (8-55); AST (SGOT) 25 U/L (5-34); Albumin 3.3 g/dL (3.5-5.0); Alkaline Phosphatase 96 U/L (40-150); Anion Gap 11 mmol/L (10-20); BUN (Urea Nitrogen) 14 mg/dL (7.0-18.7); Bilirubin, Total 0.3 mg/dL (0.2-1.2); CK (CPK) 60 U/L (29-168); Calc. Creatinine Clearance 0 mL/min (70-130); Calcium 8.2 mg/dL (7.8-10.44); Carbon Dioxide 23 mmol/L (22-29); Chloride 104 mmol/L (98-107); Estimated GFR-MDRD 82; Globulin 2.9 g/dL (2.4-3.5); Glucose 86 mg/dL (70-105); Lipase 32 U/L (8-78); Potassium 3.8 mmol/L (3.5-5.1); Protein, Total 6.2 g/dL (6.0-8.3); Sodium 134 mmol/L (136-145)
--- NOTE | 2017-11-06 10:23 | CT ---
CT ABDOMEN AND PELVIS WITH CONTRAST: COMPARISON: 10/10/17. INDICATION: Right side abdominal pain. FINDINGS: There is abnormal inflammation about the contracted thick-walled colon which involves the ascending, transverse, and descending colon compatible with a pancolitis. The bowel is incompletely assessed wi thout enteric contrast. No obvious pneumoperitoneum or portal vein gas. The solid abdominal organs reveal no interval acute process. There is scattered vascular disease. The imaged lower lung zones are clear. Subtle areas of increased density of the gallbladder may relate to cholelithiasis. No ac [place] osseous pathology. IMPRESSION: Findings consistent with a pancolitis which may relate to infectious or inflammatory etiologies, give n the distribution. Recommend clinical correlation as well as gastroenterology followup. Telephone call with findings placed to ER physician, Dr. Case Jonas, at the time of interpretat ion 0812 hours, 11/06/17. CODE CR POS: ALISIA
[2017-11-06] MEDS ORDERED: Morphine 4 MG/ML VIAL SLOW IVP PRN (11:07)
[2017-11-06] MEDS ORDERED: Ondansetron HCl/PF 4 MG/2 ML Vial IVP PRN (11:10)
[2017-11-06] MEDS ORDERED: Sodium Chloride 0.9% 1,000 ML IV SCH (11:10)
[2017-11-06] MEDS ORDERED: Ondansetron ODT 4 MG TAB SL PRN (11:10)
[2017-11-06 11:39] VITALS: BMI 41.7
[2017-11-06] MEDS ORDERED: Dexamethasone 4 mg/ml Vial SLOW IVP SCH (12:00)
[2017-11-06] MEDS ORDERED: ISOVUE-370 76%-LOCM 1 ML ONE (13:04)
[2017-11-06] MEDS ORDERED: Acetaminophen 325 MG TAB PO PRN (13:27)
[2017-11-06] MEDS ORDERED: Ondansetron ODT 4 MG TAB PO PRN (13:27)
[2017-11-06] MEDS ORDERED: Zolpidem Tartrate 5 MG TAB PO PRN (13:27)
[2017-11-06] MEDS ORDERED: Lubiprostone 8 MCG CAP PO PRN (13:41)
[2017-11-06] MEDS ORDERED: metroNIDAZOLE 500 MG in Premix Bag 1 BAG IVPB SCH (14:00)
--- NOTE | 2017-11-06 14:45 | HP ---
PRIMARY CARE PROVIDER: Dr. Salazar. HISTORY OF PRESENT ILLNESS: [facility] for abdominal pain for 2 days with a twisting pain. It is always present, but it comes and goes at its max is 01/05. She has had diarrhea x2 days, a little blood during the night and then more blo od this morning in the commode and on the paper. She says she has had 6-7 episodes of diarrhea this morning. She has had some nausea and vomiting for 2 days. No blood in her emesis, no fever, chills, or sweats. PAST MEDICAL HISTORY: Hospitalized one month ago with pancolitis discharged on antibiotics after col onoscopy. She has a history of fibromyalgia, aneurysm of the brain followed by william Linares on, obesity, anterior cervical diskectomy and fusion of C5, C6, done in , right total knee repl acement, tubal ligation. ALLERGIES: DICLOFENAC, LISINOPRIL, TIZANIDINE, and ULTRAM. CURRENT MEDICATIONS: Carisoprodol 350 at bedtime, dicyclomine 20 mg p.o. b.i.d., Celexa 10 mg daily, Amitiza 8 mcg twice a day, metoprolol 50 mg a day, milnacipran 100 mg p.o. at bedtime, Protonix 40 m g a day. FAMILY HISTORY: Mother in her 60s. She was on hemodialysis, does not know about her father who apparently when she was an from liver complications. PERSONAL HISTORY: Smokes 5-6 cigarettes a day, does not abuse alcohol or drugs. CODE STATUS: FULL CODE status. REVIEW OF SYSTEMS: Some dizziness.: Lightheadedness off and on for 2 days, noted fainting, no heada aimee. Eyes: No double vision, blurred vision, flashing lights. ENT: No ear pain or drainage. No n marybel bleeding. No trouble swallowing. Cardiac: No chest pain, orthopnea or paroxysmal nocturnal dy spnea. Respiratory: No cough, wheezing or asthma. Gastrointestinal: See present illness, recurren t, was hospitalized with similar symptoms 1 month ago. Genitourinary: No hematuria, dysuria or noct uria. Musculoskeletal: No muscle pains or specific joint pains. She does not her feet and ankles s well occasionally. Neurological: She has had seizures in the past, has been on medicines in the pas t. She is on none currently. Psychiatric: Some anxiety, depression. Skin: No bruising, bleeding or rash. Heme/Lymph: No tender or swollen lymph nodes in axilla, inguinal or cervical area. PHYSICAL EXAMINATION: GENERAL: Alert, pleasant, cooperative lady in no distress whatsoever. VITAL SIGNS: Temperature 98.2, pulse 87, respirations 18, blood pressure 137/75. HEENT: Pupils are equal, round, and reactive to light. Sclerae white. Extraocular movements are in tact. Tympanic membranes clear. Nose is clear. Oral mucous membranes are wet. Dental hygiene is g ood. NECK: Supple, without jugular venous distention, adenopathy or thyromegaly. CHEST: Clear to auscultation and percussion. HEART: Regular rate and rhythm. First and second heart sounds are clear. There are no appreciated murmurs or gallops. ABDOMEN: Soft, bowel sounds are normal. No hepatosplenomegaly, no mass, no rebound, no bruits. [place] el sounds pleasant. She was not tender. She said she had some minimal tenderness to deep palpation in the upper quadrants. EXTREMITIES: Trace edema with no cyanosis or clubbing. PULSES: Carotid, radial, femoral, and dorsalis pedis pulses intact. SKIN: Warm and dry without bruises or rash. HEME/LYMPH: Reveals no tender or swollen lymph nodes in axilla, inguinal or cervical area. NEUROLOGIC: Cranial nerves II-XII are intact. Deep tendon reflexes symmetric. Moves all extremitie s. LABORATORY AND X-RAY FINDINGS: Abdominal CT revealed contracted thick-walled colon involving the ent narcisa colon. Possible cholelithiasis, reviewed by me. No chest x-ray is presented. No EKG is present ed. LABORATORY DATA: Sodium 134. Comp metabolic profile otherwise normal. White count minimally elevat ed at 13.0 with no left shift, hemoglobin 13.9, platelet count 219,000. ADMITTING DIAGNOSES: 1. Pancolitis with nausea, vomiting, diarrhea. 2. Rectal bleeding. 3. Hypertension. 4. Obesity. 5. Possible cholelithiasis. PLAN: I have discussed this situation with web consultant, Dr. Mariusz Argueta. Stool studies for Infecti ous Disease have been ordered. O&P, stool for E. coli, Campylobacter, C. difficile titer. IV fluids have been ordered. Antiemetics have been ordered. Antibiotics, Cipro 400 b.i.d. IV and Flagyl 500 IV t.i.d. have been ordered. Patient will be treated for pain with morphine sulfate 4 mg. Selected home medicines will be continued. Serial H&H q.6 hours over the next 24 hours will need to be done b ecause of her rectal bleeding.
--- NOTE | 2017-11-06 15:50 | CON ---
DATE OF CONSULTATION: 11/06/2017 CHIEF COMPLAINT: Abdominal pain and diarrhea. HISTORY OF PRESENT ILLNESS: Ms. Silva is a 51-year-old woman who was hospitalized close to a month a go with diarrhea and abdominal pain. She underwent colonoscopy by Dr. Thompson, which showed colitis end oscopically in the right colon. Biopsies showed acute colitis changes in both the left and right col on. These were nonspecific. However, changes of chronic colitis were not seen. Specific changes of ischemic colitis were not seen. I did call and discuss this with the pathologist. She takes a coup le nilda Mcqueen a couple times per week. No other obvious precipitating factors. She did have some naus ea and vomiting today, but otherwise no vomiting. After her last hospital stay, her diarrhea improve d and she had 1 formed brown bowel movement per day. She had a followup appointment in the GI clinic on Thursday with (00:00) and she was doing well at that time without any problems. Her symptoms started back again on Thursday night. She started with cramping epigastric to right upper quadrant abdominal pain followed by brown watery diarrhea. The pain has persisted, but a little bit better t marcela. Her diarrhea; however, has been somewhat bloody today. She has had 6 pounds weight loss over the last week. No chest pain or shortness of breath. PAST MEDICAL HISTORY: Fibromyalgia, hypertension, obesity, and brain aneurysm. PAST SURGICAL HISTORY: Tubal ligation, knee surgery, cervical spine surgery, recent colonoscopy by Mario Thompson. FAMILY HISTORY: Negative for inflammatory bowel disease or liver disease. Her grandfather had colon cancer. SOCIAL HISTORY: She smokes close to half a pack a day. She has had no drug use or cocaine or metham phetamine use. No alcohol. ALLERGIES: DICLOFENAC, LISINOPRIL, TIZANIDINE, TRAMADOL. MEDICATIONS: Prior to admission, carisoprodol, dicyclomine, Celexa, Amitiza, and metoprolol. REVIEW OF SYSTEMS: Negative x10 systems reviewed except as stated in history of present illness. PHYSICAL EXAMINATION: VITAL SIGNS: Temperature 98.2, pulse 87, blood pressure 137/75. GENERAL: She is in no acute distress. She is alert and oriented x3. HEENT: Eyes have no scleral icterus. Oropharynx is clear, without lesions. NECK: No cervical or supraclavicular lymphadenopathy. LUNGS: Clear to auscultation bilaterally. HEART: Regular rate and rhythm. ABDOMEN: Soft. Mild tenderness in the epigastric to right upper quadrant area without guarding. Emil wel sounds are present. EXTREMITIES: No lower extremity edema. LABORATORY DATA: White blood cell count 13.0, hemoglobin 13.9, platelets 219. Creatinine 0.75, bili ornelas 0.3, AST 25, ALT 22, alkaline phosphatase 96, albumin 3.3, lipase 22. IMPRESSION: Recurrent acute bilateral colitis. Previously, she endoscopically grossly had findings in the right colon primarily. CT scan also showed thickening in the right colon. The biopsies; uma wallace, showed acute colitis changes in the left colon as well, which makes ischemic colitis much less l ikely given the alternative distribution of blood supply. She also on discussion of the biopsy resul ts with the pathologist no chronic changes were seen and no obvious changes of ischemic colitis were seen. She did have positive Campylobacter antigen in her stool last visit and this may very well be in a relapse or recurrence of acute infectious colitis. Inflammatory bowel disease is not likely giv en the lack of chronic changes by biopsies and that she had no chronic symptoms prior to this episode and I went back to normal in between these two episodes. Medication side effect is also a possibili ty. RECOMMENDATIONS: 1. Repeat stool studies. 2. Check urine tox screen. 3. If she significantly worsens again, then we may need to consider repeat colonoscopy; however, thi s is likely of low yield at the present time. 4. It would be reasonable to cover with metronidazole and the fluoroquinolone for now.
[2017-11-06] MEDS: Sodium Chloride 0.9% 1,000 ML IV SCH ×2 (16:01→23:48)
[2017-11-06] MEDS: metroNIDAZOLE 500 MG in Premix Bag 1 BAG IVPB SCH (17:43)
[2017-11-06] MEDS: Morphine 4 MG/ML VIAL SLOW IVP PRN (17:44)
[2017-11-06 17:47] LABS: Cocaine Metabolite Screen Not Detected (NotDetected); Medtox Reader # READER 1; Methamphetamine Not Detected (NotDetected); Opiate Screen Detected (NotDetected); Phencyclidine (PCP) Not Detected (NotDetected); THC/Cannabinoid Screen Not Detected (NotDetected)
[2017-11-06 17:48] LABS: Amphetamine Not Detected (NotDetected); Barbiturates Screen Not Detected (NotDetected); Benzodiazepine Screen Not Detected (NotDetected); Medtox Control Line Valid? VALID (VALID); Methadone Not Detected (NotDetected); Oxycodone Screen Not Detected (NotDetected); Tricyclic Screen Not Detected (NotDetected)
[2017-11-06 18:54] LABS: #Lymphocytes 0.9 thou/uL (1.20-3.40); #Monocytes 0.2 thou/uL (0.11-0.59); #Neutrophils 7.2 thou/uL (1.40-6.50); %Basophils 0.1 % (0.0-1.0); %Eosinophils 0.1 % (0.0-10.0); %Lymphocytes 10.8 % (21.0-51.0); %Monocytes 2.3 % (0.0-10.0); %Neutrophils 86.7 % (42.0-75.0); Mean Corpuscular HGB CONC 32.7 g/dL (32.0-36.0); Mean Corpuscular Hemoglobin 30.8 pg (27.0-31.0); Mean Corpuscular Volume 94.1 fl (81.0-99.0); Mean Platelet Volume 8.7 fL (7.4-10.4); Platelet Count 246 thou/uL (130-400); RBC Distribution Width 12.7 % (11.5-14.5); Red Blood Cell (RBC) Count 4.86 mill/uL (4.20-5.40); White Blood Cell (WBC) Count 8.3 thou/uL (4.8-10.8)
[2017-11-06] MEDS ORDERED: Milnacipran Hcl [Savella] 100 MG PO SCH (21:00)
[2017-11-06] MEDS: Ondansetron HCl/PF 4 MG/2 ML Vial IVP PRN (21:16)
[2017-11-07 00:05] LABS: #Lymphocytes 1.4 thou/uL (1.20-3.40); #Monocytes 0.6 thou/uL (0.11-0.59); #Neutrophils 5.6 thou/uL (1.40-6.50); %Basophils 0.4 % (0.0-1.0); %Eosinophils 0.4 % (0.0-10.0); %Lymphocytes 18.7 % (21.0-51.0); %Monocytes 7.5 % (0.0-10.0); %Neutrophils 73.1 % (42.0-75.0); Hemoglobin 14.2 g/dL (12.0-16.0); Mean Corpuscular HGB CONC 33.1 g/dL (32.0-36.0); Mean Corpuscular Hemoglobin 30.9 pg (27.0-31.0); Mean Corpuscular Volume 93.4 fl (81.0-99.0); Mean Platelet Volume 8.2 fL (7.4-10.4); Platelet Count 254 thou/uL (130-400); RBC Distribution Width 12.5 % (11.5-14.5); Red Blood Cell (RBC) Count 4.59 mill/uL (4.20-5.40); White Blood Cell (WBC) Count 7.7 thou/uL (4.8-10.8)
[2017-11-07] MEDS: metroNIDAZOLE 500 MG in Premix Bag 1 BAG IVPB SCH ×3 (01:58→17:16)
[2017-11-07 06:16] LABS: #Basophils 0.1 thou/uL (0.0-0.2); #Monocytes 0.8 thou/uL (0.11-0.59); #Neutrophils 6.3 thou/uL (1.40-6.50); %Basophils 0.9 % (0.0-1.0); %Eosinophils 0.2 % (0.0-10.0); %Lymphocytes 21.3 % (21.0-51.0); %Neutrophils 68.6 % (42.0-75.0); Hemoglobin 14.2 g/dL (12.0-16.0); Mean Corpuscular HGB CONC 32.9 g/dL (32.0-36.0); Mean Corpuscular Hemoglobin 30.6 pg (27.0-31.0); Mean Corpuscular Volume 93.2 fl (81.0-99.0); Mean Platelet Volume 8.2 fL (7.4-10.4); Platelet Count 249 thou/uL (130-400); RBC Distribution Width 12.5 % (11.5-14.5); Red Blood Cell (RBC) Count 4.64 mill/uL (4.20-5.40); White Blood Cell (WBC) Count 9.1 thou/uL (4.8-10.8)
[2017-11-07 06:46] LABS: Anion Gap 10 mmol/L (10-20); BUN (Urea Nitrogen) 6 mg/dL (7.0-18.7); Calc. Creatinine Clearance 178 mL/min (70-130); Calcium 9.2 mg/dL (7.8-10.44); Carbon Dioxide 27 mmol/L (22-29); Chloride 104 mmol/L (98-107); Estimated GFR-MDRD Greater than 90; Glucose 112 mg/dL (70-105); Potassium 4.1 mmol/L (3.5-5.1); Sodium 137 mmol/L (136-145)
[2017-11-07] MEDS: Sodium Chloride 0.9% 1,000 ML IV SCH ×2 (08:33→12:46)
[2017-11-07] MEDS: Escitalopram Oxalate 10 mg Tablet PO SCH (08:33)
[2017-11-07] MEDS: Metoprolol Tartrate 50 MG TAB PO SCH (08:33)
[2017-11-07] MEDS: Ondansetron HCl/PF 4 MG/2 ML Vial IVP PRN ×2 (08:34→14:32)
[2017-11-07] MEDS: Morphine 4 MG/ML VIAL SLOW IVP PRN ×2 (08:34→12:34)
--- NOTE | 2017-11-07 10:38 | PDOC.PN ---
- Subjective Encounter Start Date: 11/07/17 Encounter Start Time: 10:36 Subjective: nausea improved, still requiring iv MS for pain, scant rectal bleeding - Objective Resuscitation Status: Resuscitation Status FULL:Full Resuscitation Vital Signs & Weight: Vital Signs (12 hours) Temp Pulse Resp BP Pulse Ox 11/07/17 07:41 98.0 F 72 16 123/77 100 Weight Admit Weight 250 lb 9 oz Weight 250 lb 9 oz I&O: 11/06/17 11/07/17 11/08/17 06:59 06:59 06:59 Intake Total 3261 Output Total 600 Balance 2661 Result Diagrams: 11/07/17 06:03 11/07/17 06:03 Phys Exam - Physical Examination Neck: no JVD Respiratory: clear to auscultation bilateral Cardiovascular: RRR, no significant murmur Gastrointestinal: soft, positive bowel sounds minimal tenderness to pallpation Musculoskeletal: no edema Dx/Plan (1) Pancolitis Code(s): K51.00 - ULCERATIVE (CHRONIC) PANCOLITIS WITHOUT COMPLICATIONS Status : Acute (2) Rectal bleeding Code(s): K62.5 - HEMORRHAGE OF ANUS AND RECTUM Status: Acute (3) Abdominal pain Code(s): R10.9 - UNSPECIFIED ABDOMINAL PAIN Status: Acute Qualifiers: Abdominal location: generalized Qualified Code(s): R10.84 - Generalized abdominal pain (4) Fibromyalgia Status: Chronic (5) HTN (hypertension) Code(s): I10 - ESSENTIAL (PRIMARY) HYPERTENSION Status: Chronic Qualifiers: Hypertension type: essential hypertension - Plan cont morphine for pain. cont iv cipro/flagyl -: discuss with Dr Argueta(GI) -: pos campylobacter titer * .
[2017-11-07 13:51] LABS: #Basophils 0.1 thou/uL (0.0-0.2); #Lymphocytes 2.7 thou/uL (1.20-3.40); #Monocytes 1.3 thou/uL (0.11-0.59); #Neutrophils 5.7 thou/uL (1.40-6.50); %Basophils 0.7 % (0.0-1.0); %Eosinophils 0.3 % (0.0-10.0); %Lymphocytes 27.3 % (21.0-51.0); %Monocytes 13.3 % (0.0-10.0); %Neutrophils 58.4 % (42.0-75.0); Hemoglobin 13.6 g/dL (12.0-16.0); Mean Corpuscular HGB CONC 33.1 g/dL (32.0-36.0); Mean Corpuscular Hemoglobin 30.9 pg (27.0-31.0); Mean Corpuscular Volume 93.3 fl (81.0-99.0); Mean Platelet Volume 9.2 fL (7.4-10.4); Platelet Count 288 thou/uL (130-400); RBC Distribution Width 12.6 % (11.5-14.5); Red Blood Cell (RBC) Count 4.42 mill/uL (4.20-5.40); White Blood Cell (WBC) Count 9.8 thou/uL (4.8-10.8)
--- NOTE | 2017-11-07 15:07 | PRG ---
DATE OF SERVICE: 11/07/2017 SUBJECTIVE: Ms. Silva has had around 4 nonbloody liquidy stools today. She still has had some abdom inal pain, requiring morphine. This morphine does control her pain well. OBJECTIVE: VITAL SIGNS: Temperature 96.9, pulse 60, blood pressure 104/68. GENERAL: She is in no acute distress, alert and oriented x3. LUNGS: Clear to auscultation bilaterally. HEART: Regular rate and rhythm. ABDOMEN: Soft and tender, but there is no guarding. Bowel sounds are present. EXTREMITIES: No lower extremity edema. LABORATORY DATA: Her white blood cell count is 9.8. Creatinine 0.68. IMPRESSION: A relapse or recurrence of Campylobacter colitis. Previous biopsies were consistent wit h infectious colitis. Her Campylobacter antigen has come back positive for a second time. She did g o back to normal and then relapse of these symptoms. She was advised to get rid of anything in her r efrigerator as a potential source. She cannot think of any exposure with preparing chicken or eating out or obvious source. RECOMMENDATIONS: 1. Continue fluids and symptomatic treatment. It would be reasonable to complete a 5-day course of antibiotics. 2. As long as her pain is so severe enough to require IV morphine that I would hold off advancing he r diet. We will continue clear liquids for today.
[2017-11-07] MEDS: Dicyclomine 20 MG TAB PO PRN (20:11)
[2017-11-08] MEDS: metroNIDAZOLE 500 MG in Premix Bag 1 BAG IVPB SCH ×3 (01:18→17:44)
[2017-11-08] MEDS: Sodium Chloride 0.9% 1,000 ML IV SCH ×3 (01:21→17:43)
[2017-11-08] MEDS: Metoprolol Tartrate 50 MG TAB PO SCH (08:39)
[2017-11-08] MEDS: Escitalopram Oxalate 10 mg Tablet PO SCH (08:39)
[2017-11-08] MEDS: Dicyclomine 20 MG TAB PO PRN (14:21)
[2017-11-08] MEDS ORDERED: Loperamide HCl 2 MG CAP PO PRN (15:17)
[2017-11-08] MEDS ORDERED: Diabetic Tussin 200 MG/10 ML UDCUP PO PRN (15:40)
--- NOTE | 2017-11-08 15:43 | PRG ---
DATE OF SERVICE: 11/08/2017 SUBJECTIVE: Ms. Silva states her pain is much improved today. She has not been requiring IV pain me dicine. She has had around 6 liquidy stools today. Yesterday, she had 8-10. She has had no further blood in the stool. OBJECTIVE: VITAL SIGNS: Temperature 97.7, pulse 61, blood pressure 145/84. GENERAL: She is in no acute distress. She is alert and oriented x3. LUNGS: Clear to auscultation bilaterally. HEART: Regular rate and rhythm. ABDOMEN: Soft, nontender, nondistended. Bowel sounds are present. EXTREMITIES: No lower extremity edema. IMPRESSION: Relapse or recurrence of Campylobacter colitis. She is clinically improving on antibiot ics. RECOMMENDATIONS: We will try to advance to a solid diet today. Continue antibiotics. It would be o eber to take Imodium as needed.
[2017-11-08] MEDS: guaiFENesin ER 600 MG TAB PO SCH (20:05)
--- NOTE | 2017-11-08 23:25 | PDOC.PN ---
- Subjective Encounter Start Date: 11/08/17 Encounter Start Time: 15:00 Patient seen and examined for Colitis. Diarrhea +. No new complaints. No overnight events - Objective Resuscitation Status: Resuscitation Status FULL:Full Resuscitation MAR Reviewed: Yes Vital Signs & Weight: Vital Signs (12 hours) Temp Pulse Resp BP Pulse Ox 11/08/17 20:00 97.7 F 61 18 11/08/17 19:25 98.0 F 58 L 16 158/83 H 97 Weight Admit Weight 250 lb 9 oz Weight 250 lb 9 oz I&O: 11/07/17 11/08/17 11/09/17 06:59 06:59 06:59 Intake Total 3261 2600 3600 Output Total 600 Balance 2661 2600 3600 Result Diagrams: 11/07/17 13:36 11/07/17 06:03 Phys Exam - Physical Examination Constitutional: NAD Respiratory: no wheezing, no rhonchi Cardiovascular: RRR, no rub Gastrointestinal: soft mild gen tend, no guarding Musculoskeletal: no edema Neurological: moves all 4 limbs Dx/Plan (1) Intestinal infection due to Campylobacter coli Code(s): A04.5 - CAMPYLOBACTER ENTERITIS Status: Acute Comment: with Colitis (2) Rectal bleeding Code(s): K62.5 - HEMORRHAGE OF ANUS AND RECTUM Status: Acute (3) HTN (hypertension) Code(s): I10 - ESSENTIAL (PRIMARY) HYPERTENSION Status: Chronic Qualifiers: Hypertension type: essential hypertension (4) Morbid obesity with BMI of 40.0-44.9, adult Code(s): E66.01 - MORBID (SEVERE) OBESITY DUE TO EXCESS CALORIES; Z68.41 - BODY MASS INDEX (BMI) 40.0-44.9, ADULT Status: Chronic - Plan continue antibiotics, out of bed/ambulate, DVT proph w/SCDs Cont current meds as below -: Advance diet as tolerated Review of Systems - Review of Systems Respiratory: negative: Cough, Dry, Shortness of Breath, Hemoptysis, SOB with Excertion, Pleuritic Pain, Sputum, Wheezing Cardiovascular: negative: chest pain, palpitations, orthopnea, paroxysmal nocturnal dyspnea, edema, light headedness, other - Medications/Allergies Allergies/Adverse Reactions: Allergies Allergy/AdvReac Type Severity Reaction Status Date / Time diclofenac Allergy Verified 03/12/17 10:28 lisinopril Allergy muscle Verified 03/12/17 09:54 spasm tizanidine Allergy Verified 03/12/17 10:28 tramadol Allergy Verified 03/12/17 10:28 Medications: Current Medications Acetaminophen (Tylenol) 650 mg PO Q4H PRN PRN Reason: Headache/Fever or Pain Carisoprodol (Soma) 350 mg PO HS PRN PRN Reason: Insomnia Dicyclomine HCl (Bentyl) 20 mg PO QID PRN PRN Reason: Pain Last Admin: 11/08/17 14:21 Dose: 20 mg Escitalopram Oxalate (Lexapro) 10 mg PO DAILY [facility] Last Admin: 11/08/17 08:39 Dose: 10 mg Guaifenesin (Robitussin Sf) 200 mg PO Q4H PRN PRN Reason: Cough Guaifenesin (Mucinex) 600 mg PO Q12HR [facility] Last Admin: 11/08/17 20:05 Dose: 600 mg Sodium Chloride (Normal Saline 0.9%) 1,000 mls @ 100 mls/hr IV .Q10H [facility] Last Admin: 11/08/17 17:43 Dose: 1,000 mls Ciprofloxacin/Dextrose 400 mg/ (Device) 200 mls @ 200 mls/hr IVPB Q12HR [facility] Last Admin: 11/08/17 20:04 Dose: 200 mls Metronidazole 500 mg/ Device 100 mls @ 100 mls/hr IVPB 0200,1000,1800 [facility] Last Admin: 11/08/17 17:44 Dose: 100 mls Loperamide HCl (Imodium) 2 mg PO Q4H PRN PRN Reason: Diarrhea/Loose Stools Metoprolol Tartrate (Lopressor) 50 mg PO DAILY [facility] Last Admin: 11/08/17 08:39 Dose: 50 mg Ondansetron HCl (Zofran Odt) 4 mg PO Q6H PRN PRN Reason: Nausea/Vomiting Last Admin: 11/06/17 19:33 Dose: 4 mg Ondansetron HCl (Zofran) 4 mg IVP Q6H PRN PRN Reason: Nausea/Vomiting Last Admin: 11/07/17 14:32 Dose: 4 mg Pantoprazole Sodium (Protonix) 40 mg PO [facility] Last Admin: 11/08/17 20:05 Dose: 40 mg Milnacipran Hcl [ (Savella] 100 Mg) 0 each PO HS [facility]ALI Zolpidem Tartrate (Ambien) 5 mg PO HSPRN PRN PRN Reason: Insomnia
[2017-11-09] MEDS: metroNIDAZOLE 500 MG in Premix Bag 1 BAG IVPB SCH ×3 (01:53→17:25)
[2017-11-09] MEDS: guaiFENesin ER 600 MG TAB PO SCH ×2 (07:38→21:46)
[2017-11-09] MEDS: Metoprolol Tartrate 50 MG TAB PO SCH (07:38)
[2017-11-09] MEDS: Escitalopram Oxalate 10 mg Tablet PO SCH (07:38)
[2017-11-09] MEDS: Sodium Chloride 0.9% 1,000 ML IV SCH (07:42)
--- NOTE | 2017-11-09 10:14 | RAD ---
PORTABLE CHEST: History: Chest congestion. FINDINGS: Lung fitzpatrick are clear. Heart and mediastinum unremarkable. Vascular markings normal. IMPRESSION: No acute finding. POS: [facility]
[2017-11-09 11:41] LABS: Anion Gap 9 mmol/L (10-20); BUN (Urea Nitrogen) 6 mg/dL (7.0-18.7); Calc. Creatinine Clearance 159 mL/min (70-130); Calcium 8.4 mg/dL (7.8-10.44); Carbon Dioxide 31 mmol/L (22-29); Chloride 103 mmol/L (98-107); Estimated GFR-MDRD 81; Glucose 103 mg/dL (70-105); Magnesium 1.8 mg/dL (1.6-2.6); Phosphorus 3.3 mg/dL (2.3-4.7); Potassium 3.8 mmol/L (3.5-5.1); Sodium 139 mmol/L (136-145)
[2017-11-09 11:56] LABS: Troponin I Less than 0.010 ng/mL (< 0.028)
--- NOTE | 2017-11-09 14:19 | PRG ---
DATE OF SERVICE: 11/09/2017 SUBJECTIVE: Her abdominal pain has resolved. Her diarrhea is improved. OBJECTIVE: VITAL SIGNS: Temperature 98.5, pulse 69, blood pressure 137/74. GENERAL: She is in no acute distress, alert and oriented. LUNGS: Clear to auscultation bilaterally. HEART: Regular rate and rhythm. ABDOMEN: Soft, nontender, nondistended. Bowel sounds are present. EXTREMITIES: No lower extremity edema. IMPRESSION: Relapse versus reinfection of Campylobacter colitis. She has improved again after a cou rse of antibiotics and fluids. She should be able to stop the antibiotics after a 5 day course. RECOMMENDATIONS: 1. Complete a 5 day course of fluoroquinolone. 2. Would discharge on a probiotic daily. 3. Follow up with Dr. Thompson in 2-4 weeks. 4. I will sign off. Please call if GI can be of assistance.
--- NOTE | 2017-11-09 22:49 | PDOC.PN ---
- Subjective Encounter Start Date: 11/09/17 Encounter Start Time: 11:30 Patient seen and examined for Colitis. No new complaints except for diarrhea. No overnight events - Objective Resuscitation Status: Resuscitation Status FULL:Full Resuscitation MAR Reviewed: Yes Vital Signs & Weight: Vital Signs (12 hours) Temp Pulse Resp BP Pulse Ox 11/09/17 19:47 98.0 F 63 20 149/81 H 94 L Weight Admit Weight 250 lb 9 oz Weight 250 lb 9 oz I&O: 11/08/17 11/09/17 11/10/17 06:59 06:59 06:59 Intake Total 2600 3600 1080 Balance 2600 3600 1080 Result Diagrams: 11/07/17 13:36 11/09/17 11:07 Phys Exam - Physical Examination Constitutional: NAD Respiratory: no wheezing, no rhonchi Cardiovascular: RRR, no rub Gastrointestinal: soft, positive bowel sounds mild gen tenderness, no rebound Musculoskeletal: no edema Neurological: moves all 4 limbs Dx/Plan (1) Intestinal infection due to Campylobacter coli Code(s): A04.5 - CAMPYLOBACTER ENTERITIS Status: Acute Comment: with Colitis (2) Rectal bleeding Code(s): K62.5 - HEMORRHAGE OF ANUS AND RECTUM Status: Acute (3) HTN (hypertension) Code(s): I10 - ESSENTIAL (PRIMARY) HYPERTENSION Status: Chronic Qualifiers: Hypertension type: essential hypertension Qualified Code(s): I10 - Essential (primary) hypertension (4) Morbid obesity with BMI of 40.0-44.9, adult Code(s): E66.01 - MORBID (SEVERE) OBESITY DUE TO EXCESS CALORIES; Z68.41 - BODY MASS INDEX (BMI) 40.0-44.9, ADULT Status: Chronic - Plan cont current plan of care, continue antibiotics, out of bed/ambulate, DVT proph w/SCDs Advance diet -: DC home prob in AM if ok with GI -: Cont current meds as below Review of Systems - Review of Systems Respiratory: negative: Cough, Dry, Shortness of Breath, Hemoptysis, SOB with Excertion, Pleuritic Pain, Sputum, Wheezing Cardiovascular: negative: chest pain, palpitations, orthopnea, paroxysmal nocturnal dyspnea, edema, light headedness, other - Medications/Allergies Allergies/Adverse Reactions: Allergies Allergy/AdvReac Type Severity Reaction Status Date / Time diclofenac Allergy Verified 03/12/17 10:28 lisinopril Allergy muscle Verified 03/12/17 09:54 spasm tizanidine Allergy Verified 03/12/17 10:28 tramadol Allergy Verified 03/12/17 10:28 Medications: Current Medications Acetaminophen (Tylenol) 650 mg PO Q4H PRN PRN Reason: Headache/Fever or Pain Carisoprodol (Soma) 350 mg PO HS PRN PRN Reason: Insomnia Dicyclomine HCl (Bentyl) 20 mg PO QID PRN PRN Reason: Pain Last Admin: 11/08/17 14:21 Dose: 20 mg Escitalopram Oxalate (Lexapro) 10 mg PO DAILY [facility] Last Admin: 11/09/17 07:38 Dose: 10 mg Guaifenesin (Robitussin Sf) 200 mg PO Q4H PRN PRN Reason: Cough Guaifenesin (Mucinex) 600 mg PO Q12HR [facility] Last Admin: 11/09/17 21:46 Dose: 600 mg Ciprofloxacin/Dextrose 400 mg/ (Device) 200 mls @ 200 mls/hr IVPB Q12HR [facility] Last Admin: 11/09/17 21:46 Dose: 200 mls Metronidazole 500 mg/ Device 100 mls @ 100 mls/hr IVPB 0200,1000,1800 [facility] Last Admin: 11/09/17 17:25 Dose: 100 mls Loperamide HCl (Imodium) 2 mg PO Q4H PRN PRN Reason: Diarrhea/Loose Stools Metoprolol Tartrate (Lopressor) 50 mg PO DAILY [facility] Last Admin: 11/09/17 07:38 Dose: 50 mg Ondansetron HCl (Zofran Odt) 4 mg PO Q6H PRN PRN Reason: Nausea/Vomiting Last Admin: 11/06/17 19:33 Dose: 4 mg Ondansetron HCl (Zofran) 4 mg IVP Q6H PRN PRN Reason: Nausea/Vomiting Last Admin: 11/07/17 14:32 Dose: 4 mg Pantoprazole Sodium (Protonix) 40 mg PO HS [facility] Last Admin: 11/09/17 21:46 Dose: 40 mg Zolpidem Tartrate (Ambien) 5 mg PO HSPRN PRN PRN Reason: Insomnia
[2017-11-10] MEDS: metroNIDAZOLE 500 MG in Premix Bag 1 BAG IVPB SCH ×2 (02:26→09:19)
[2017-11-10] MEDS: Metoprolol Tartrate 50 MG TAB PO SCH (07:56)
[2017-11-10] MEDS: Escitalopram Oxalate 10 mg Tablet PO SCH (07:56)
[2017-11-10] MEDS: guaiFENesin ER 600 MG TAB PO SCH (07:56)
[2017-11-10 11:41] VITALS: BP 139/78; TEMP 98.4
--- NOTE | 2017-11-10 17:41 | DIS ---
DATE OF DISCHARGE: 11/10/2017 DISCHARGE DISPOSITION: Home. FOLLOWUP: 1. Follow up with primary care physician, Dr. Salazar in 1 week. 2. Follow up with Gastroenterology, Dr. Thompson in 2 weeks. ALLERGIES: The patient is allergic to LISINOPRIL, TRAMADOL, TIZANIDINE, and DICLOFENAC. The patient was seen on the day of discharge, denies any new complaints. Nausea, vomiting, and diarr hea has improved. BRIEF HOSPITAL COURSE: The patient is a 51-year-old female with recent Campylobacter infection, pres ented to the hospital with abdominal pain along with diarrhea, nausea, and vomiting. Please refer to the history and physical dated 11/06/2017 for further details. The patient was admitted to the hospital with a diagnosis of Campylobacter colitis. A CT scan of the abdomen and pelvis with contrast was consistent with pancolitis. A stool workup was positive for Ca mpylobacter. Ova and parasite, Shiga toxin, and C. diff were negative. The patient was evaluated by Gastroenterology, Dr. Argueta. The patient will complete ciprofloxacin and Flagyl for 5 days. Plan o f care was discussed with the patient in detail. She stated understanding. FINAL DIAGNOSES: 1. Campylobacter colitis. 2. Rectal bleeding on admission secondary to colitis, resolved. 3. Nausea, vomiting, abdominal discomfort with diarrhea secondary to #1. 4. Hypertension. 5. Morbid obesity with a BMI of 41.7. 6. Recent Campylobacter infection. 7. Chronic pain syndrome. 8. Fibromyalgia. 9. Mild hyponatremia, resolved. 10. Leukocytosis on admission secondary to #1. Plan of care was discussed with the patient in detail. She stated understanding.
--- NOTE | 2017-11-11 20:13 | EKG ---
Test Reason : Blood Pressure : / mmHG Vent. Rate : 056 BPM Atrial Rate : 056 BPM P-R Int : 204 ms QRS Dur : 088 ms QT Int : 468 ms P-R-T Axes : 060 002 030 degrees QTc Int : 451 ms Sinus bradycardia Low voltage QRS Borderline ECG When compared with ECG of 10-OCT-2017 09:06, (Unconfirmed) Sinus rhythm has replaced Atrial flutter Vent. rate has decreased BY 46 BPM Confirmed by SAVITA EDWARDS (2) on 11/11/2017 8:12:48 PM Referred By: CHIQUI Confirmed By:SAVITA EDWARDS
== END 2017-11-10 14:54 | disposition home or self-care (01) | DRG 372 ==
LOC: ERS 06:57 → T4-B 10:49
PROVIDERS: ADMIT Internal Medicine; ATTEND Internal Medicine
DX: A04.5 Campylobacter enteritis (principal); K62.5 Hemorrhage of anus and rectum; Z68.41 Body mass index [BMI] 40.0-44.9, adult; E87.1 Hypo-osmolality and hyponatremia; M79.7 Fibromyalgia; I10 Essential (primary) hypertension; E66.9 Obesity, unspecified; F17.210 Nicotine dependence, cigarettes, uncomplicated
CPT/HCPCS: 36415; 71045; 74177; 80048; 80053; 80306; 82274; 82550; 83690; 83735; 84100; 84484; 85025; 87045; 87046; 87324; 87328; 87329; 87449; 87899; 93005; 93010; 96361; 96365; 96375; J0744; J1100; J1956; J2270; J2405; Q0162

== ENCOUNTER 2018-09-09 11:53 | Emergency (ER) | payer MEDICARE, OTHER ==
[2018-09-09] MEDS ORDERED: Adacel (T-DAP) 0.5 ML SYRINGE ONE (12:47)
--- NOTE | 2018-09-09 13:09 | RAD ---
RIGHT WRIST THREE VIEWS: INDICATIONS: Fall with pain. FINDINGS: There is mild cortical irregularity at the radial articular surface. Carpal alignment is maintained. IMPRESSION: Mild cortical irregularity at the distal radial articular surface, which extends laterally to underly the radial styloid. As necessary, this may be further assessed with a CT of the right wrist. POS: [facility]
--- NOTE | 2018-09-09 13:12 | RAD ---
RIGHT ELBOW FOUR VIEWS: INDICATIONS: Fall with injury, pain. FINDINGS: There is a corticated, small, heterotopic density adjacent to the coronoid process of the proximal ul na. No joint capsular distention or acute osseous abnormality otherwise demonstrated. IMPRESSION: 1. Small, corticated, heterotopic density adjacent to the coronoid process. 2. Otherwise no acute fracture or dislocation. POS: [facility]
== END 2018-09-09 13:33 | disposition home or self-care (01) ==
LOC: SCSER 11:53
DX: S52.501A Unspecified fracture of the lower end of right radius, initial encounter for closed fracture (principal); S50.01XA Contusion of right elbow, initial encounter; I10 Essential (primary) hypertension; K21.9 Gastro-esophageal reflux disease without esophagitis; F17.210 Nicotine dependence, cigarettes, uncomplicated; Z71.6 Tobacco abuse counseling; Z79.891 Long term (current) use of opiate analgesic; Z79.899 Other long term (current) drug therapy; W19.XXXA Unspecified fall, initial encounter
CPT/HCPCS: 29125; 90715; 99406

== ENCOUNTER 2018-11-05 08:09 | Outpatient (CLI) | payer MEDICARE, OTHER ==
--- NOTE | 2018-11-05 10:28 | CT ---
CT ABDOMEN AND PELVIS WITH IV CONTRAST: 11/05/2018 PROVIDED CLINICAL HISTORY: Abdominal pain. COMPARISON: 11/06/2017 FINDINGS: The visualized lung bases are free of significant opacity. Fatty infiltration of the liver is noted. The solid abdominal organs demonstrate an otherwise unrema rkable CT appearance. There is no bowel dilatation, inflammatory fat stranding, free fluid, or lymph node enlargement appar ent. The appendix appears normal. Scattered vascular calcifications are seen. The osseous structures demonstrate no concerning osteoblastic or osteolytic lesions. IMPRESSION: 1. No evidence for an acute process. 2. Chronic findings as above. POS: [facility]
[2018-11-05] MEDS ORDERED: Iopamidol 370 76% 100 ML VIAL ONE (11:51)
== END 2018-11-05 08:10 | disposition home or self-care (01) ==
LOC: CT 08:09
PROVIDERS: ATTEND Physician Assistant Medical
DX: K57.90 Diverticulosis of intestine, part unspecified, without perforation or abscess without bleeding (principal); R10.9 Unspecified abdominal pain; R19.4 Change in bowel habit
CPT/HCPCS: 74177; Q9967

== ENCOUNTER 2019-01-19 09:18 | Outpatient (CLI) | payer MEDICARE, MEDICAID ==
--- NOTE | 2019-01-19 11:48 | CT ---
CT angiogram of the head: 01/19/2019 COMPARISON: 09/23/2016 HISTORY: Intracranial aneurysm TECHNIQUE: Axial CT imaging is obtained at 5 mm intervals from vertex through skull base without cont rast. Then, axial CT imaging at 1.25 mm intervals obtained from vertex through skull base with IV contrast using CT angiogram protocol. Coronal and sagittal 3-D reformatted imaging obtained. FINDINGS: The noncontrast enhanced imaging demonstrates no intracranial hemorrhage, midline shift, ma ss effect, or ventricular enlargement. There is evidence of prior paranasal sinus surgery bilaterally. The imaged paranasal sinuses and mast oid air cells appear well aerated and no acute intracranial abnormality is evident. The distal vertebral artery is patent bilaterally. The basilar artery and its branches are patent. Patent posterior communicating arteries are noted liu aterally. No saccular aneurysm, high-grade stenosis, or saccular aneurysm is evident involving the anterior cir culation. The extracranial ICA is patent bilaterally. 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 The ICA bifurcation, M1 segment, and MCA bifurcation appears grossly unremarkable bilaterally. The junction of the M1 and A1 segment is stable on the right and could signify a very tiny stable ane urysm in the 3 mm range. There has been no significant interval change when compared to prior CT angiograms. IMPRESSION: Stable CT angiogram of the head as detailed above. Transcribed Date/Time: 01/19/2019 1:06 PM
== END 2019-01-19 09:19 | disposition home or self-care (01) ==
LOC: TBSIIMAG 09:18 → CT 09:19
PROVIDERS: ATTEND Neurological Surgery
DX: I67.1 Cerebral aneurysm, nonruptured (principal)
CPT/HCPCS: 70496; 82565

== ENCOUNTER 2019-08-02 10:36 | Outpatient (CLI) | payer MEDICARE, MEDICAID ==
--- NOTE | 2019-08-03 10:13 | MMO ---
Bilateral MAMMO Bilat Screen [facility]. CLINICAL HISTORY: Patient is 53 years old and is seen for screening. The patient has no family history of breast cancer. The patient has no personal history of cancer. VIEWS: The views performed were: bilateral craniocaudal with tomosynthesis and bilateral mediolateral oblique with tomosynthesis. FILMS COMPARED: The present examination has been compared to prior imaging studies performed at [facility] on 01/27/2008, 11/18/2011 and 06/19/2015. This study has been interpreted with the assistance of computer-aided detection. MAMMOGRAM FINDINGS: There are scattered fibroglandular densities. There are no suspicious masses, suspicious calcifications, or new areas of architectural distortion. IMPRESSION: THERE IS NO MAMMOGRAPHIC EVIDENCE OF MALIGNANCY. A ROUTINE FOLLOW-UP MAMMOGRAM IN 1 YEAR IS RECOMMENDED. THE RESULTS OF THIS EXAM WERE SENT TO THE PATIENT. ACR BI-RADS Category 1 - Negative MAMMOGRAPHY NOTE: 1. A negative mammogram report should not delay a biopsy if a dominant of clinically suspicious mass is present. 2. Approximately 10% to 15% of breast cancers are not detected by mammography. 3. Adenosis and dense breasts may obscure an underlying neoplasm. Reported by: RAISA BUSTAMANTE MD Electonically Signed: [id number]
== END 2019-08-02 10:37 | disposition home or self-care (01) ==
LOC: BICMAMMO 10:36
PROVIDERS: ATTEND Family Medicine
DX: Z12.31 Encounter for screening mammogram for malignant neoplasm of breast (principal)
CPT/HCPCS: 77063; 77067

== ENCOUNTER 2019-11-29 10:03 | Outpatient (CLI) | payer MEDICARE, MEDICAID ==
--- NOTE | 2019-11-29 10:51 | ULT ---
Ultrasound Doppler duplex carotid: 11/29/2019 HISTORY: 53-year-old female with TIA TECHNIQUE: Grayscale, color-flow, and spectral analysis, of major arteries of neck. FINDINGS: Highest peak systolic velocities in the internal carotid arteries: Right: 135 cm/s Left: 110 cm/s ICA/CCA ratios: Right: 1.3 Left: 1.2 Vertebral artery flow antegrade bilaterally. 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 Little or no plaque visualized at proximal internal carotid arteries. IMPRESSION: No evidence of hemodynamically significant stenosis.
== END 2019-11-29 10:04 | disposition home or self-care (01) ==
LOC: BICULT 10:03
PROVIDERS: ATTEND Family Medicine
DX: G45.9 Transient cerebral ischemic attack, unspecified (principal)
CPT/HCPCS: 93880

== ENCOUNTER 2021-01-31 12:13 | Emergency (ER) | payer MEDICARE, MEDICAID ==
[2021-01-31] MEDS ORDERED: Ketorolac Tromethamine 30 MG/ML VIAL ONE (13:44)
== END 2021-01-31 14:16 | disposition home or self-care (01) ==
LOC: ERS 12:13
DX: M17.12 Unilateral primary osteoarthritis, left knee (principal); M79.7 Fibromyalgia; I10 Essential (primary) hypertension; K21.9 Gastro-esophageal reflux disease without esophagitis; F17.210 Nicotine dependence, cigarettes, uncomplicated
CPT/HCPCS: 96372; J1885

== ENCOUNTER 2021-03-08 09:36 | Outpatient (CLI) | payer MEDICARE, MEDICAID | END 2021-03-08 09:37 | disposition home or self-care (01) | LOC: BICULT 09:36 | PROVIDERS: ATTEND Family Medicine | DX: Z13.6 Encounter for screening for cardiovascular disorders (principal); Z12.2 Encounter for screening for malignant neoplasm of respiratory organs; F17.210 Nicotine dependence, cigarettes, uncomplicated | CPT/HCPCS: 71271; 76775 ==

== ENCOUNTER 2021-03-08 10:25 | Outpatient (CLI) | payer MEDICARE, MEDICAID | END 2021-03-08 10:26 | disposition home or self-care (01) | LOC: BICMAMMO 10:25 | PROVIDERS: ATTEND Family Medicine | DX: Z12.31 Encounter for screening mammogram for malignant neoplasm of breast (principal) | CPT/HCPCS: 77063; 77067 ==

== ENCOUNTER 2021-06-11 08:03 | Outpatient (CLI) | payer MEDICARE, MEDICAID | END 2021-06-11 08:04 | disposition home or self-care (01) | LOC: CT 08:03 | PROVIDERS: ATTEND Physician Assistant Medical | DX: K21.9 Gastro-esophageal reflux disease without esophagitis (principal); R10.13 Epigastric pain; K80.20 Calculus of gallbladder without cholecystitis without obstruction; R63.0 Anorexia; K57.30 Diverticulosis of large intestine without perforation or abscess without bleeding; K76.0 Fatty (change of) liver, not elsewhere classified | CPT/HCPCS: 74170 ==

== ENCOUNTER 2021-08-23 13:19 | Outpatient (CLI) | payer MEDICARE, OTHER | END 2021-08-23 13:20 | disposition home or self-care (01) | LOC: BICCT 13:19 | PROVIDERS: ATTEND Neurological Surgery | DX: M47.22 Other spondylosis with radiculopathy, cervical region (principal); Z98.1 Arthrodesis status | CPT/HCPCS: 72125 ==

== ENCOUNTER 2022-01-03 12:29 | Outpatient (CLI) | payer OTHER | END 2022-01-03 12:30 | disposition home or self-care (01) | LOC: TBSIIMAG 12:29 | PROVIDERS: ATTEND Specialist | DX: M51.17 Intervertebral disc disorders with radiculopathy, lumbosacral region (principal); M47.27 Other spondylosis with radiculopathy, lumbosacral region; M47.815 Spondylosis without myelopathy or radiculopathy, thoracolumbar region; M51.36 Other intervertebral disc degeneration, lumbar region; M47.816 Spondylosis without myelopathy or radiculopathy, lumbar region | CPT/HCPCS: 72148 ==

== ENCOUNTER 2022-01-07 09:20 | Outpatient (CLI) | payer MEDICARE, OTHER | END 2022-01-07 09:21 | disposition home or self-care (01) | LOC: NM 09:20 | PROVIDERS: ATTEND Orthopaedic Surgery | DX: Z47.1 Aftercare following joint replacement surgery (principal); Z96.651 Presence of right artificial knee joint | CPT/HCPCS: 78315; A9503 ==

== ENCOUNTER 2022-01-16 10:40 | Outpatient (CLI) | payer MEDICARE, OTHER | END 2022-01-16 10:41 | disposition home or self-care (01) | LOC: TBSIIMAG 10:40 | PROVIDERS: ATTEND Specialist | DX: M51.14 Intervertebral disc disorders with radiculopathy, thoracic region (principal); M48.04 Spinal stenosis, thoracic region | CPT/HCPCS: 72146 ==

== ENCOUNTER 2022-02-07 09:19 | Outpatient (CLI) | payer OTHER, MEDICARE ==
[2022-02-07] MEDS ORDERED: Iopamidol-370 76% 500 ML 1 ML ONE (09:25)
== END 2022-02-07 09:20 | disposition home or self-care (01) ==
LOC: BICCT 09:19
PROVIDERS: ATTEND Neurological Surgery
DX: I67.1 Cerebral aneurysm, nonruptured (principal)
CPT/HCPCS: 70496; Q9967

== ENCOUNTER 2022-06-13 11:48 | Day surgery (SDC) | payer OTHER ==
[2022-06-12 10:43] VITALS: BMI 42.5
[2022-06-13] MEDS ORDERED: Fentanyl 250 MCG/5 ML VIAL ONE (13:01)
[2022-06-13] MEDS ORDERED: Iopamidol 20 ML FS ONE (13:02)
[2022-06-13] MEDS ORDERED: Bupivacaine/Epinephrine 0.25% 30 ML VIAL ONE (13:02)
[2022-06-13] MEDS ORDERED: cefOXitin 2 GM VIAL ONE (13:18)
[2022-06-13] MEDS ORDERED: Sodium Chloride 0.9% 100 ML ONE (13:18)
[2022-06-13] MEDS ORDERED: PROPOFOL 200 MG/20 ML VIAL ONE (13:31)
[2022-06-13] MEDS ORDERED: Ondansetron PF 4 MG/2 ML Vial ONE (13:31)
[2022-06-13] MEDS ORDERED: Ketorolac Tromethamine 30 MG/ML VIAL ONE (13:31)
[2022-06-13] MEDS ORDERED: Rocuronium Bromide 10 MG/ML (10ML VIAL) ONE (13:31)
[2022-06-13] MEDS ORDERED: SUGAMMADEX SODIUM 200 MG/2 ML VIAL ONE (14:19)
[2022-06-13] MEDS ORDERED: FENTANYL 50 MCG/ML 1 ML VIAL ONE ×3 (14:54→15:31)
[2022-06-13] MEDS ORDERED: Promethazine HCl 25 MG/ML VIAL ONE (14:59)
[2022-06-13] MEDS ORDERED: HYDROcodone/Acetaminophen 5/325 mg Tablet ONE (16:07)
== END 2022-06-13 17:35 | disposition home or self-care (01) ==
LOC: SDC 11:48
PROVIDERS: ATTEND Surgery
PROC: 0FT44ZZ Resection of Gallbladder, Percutaneous Endoscopic Approach (ICD-10-PCS; principal; 2022-06-13)
PROC: BF101ZZ Fluoroscopy of Bile Ducts using Low Osmolar Contrast (ICD-10-PCS; 2022-06-13)
PROC: 0FB04ZX Excision of Liver, Percutaneous Endoscopic Approach, Diagnostic (ICD-10-PCS; 2022-06-13)
DX: K74.60 Unspecified cirrhosis of liver (principal); K76.0 Fatty (change of) liver, not elsewhere classified; K80.10 Calculus of gallbladder with chronic cholecystitis without obstruction; K21.9 Gastro-esophageal reflux disease without esophagitis; E78.5 Hyperlipidemia, unspecified; M79.7 Fibromyalgia; I10 Essential (primary) hypertension; F17.210 Nicotine dependence, cigarettes, uncomplicated; E66.01 Morbid (severe) obesity due to excess calories; Z68.41 Body mass index [BMI] 40.0-44.9, adult; Z79.2 Long term (current) use of antibiotics; Z79.84 Long term (current) use of oral hypoglycemic drugs; Z79.899 Other long term (current) drug therapy; Z88.5 Allergy status to narcotic agent; Z88.8 Allergy status to other drugs, medicaments and biological substances; Z98.1 Arthrodesis status
CPT/HCPCS: 47379; 47532; 47563; 82962; C1889; J3010; 36416; 88304; 88307; 88313; J0694; J1885; J2405; J2550; J2704; J3490; Q9966

== ENCOUNTER 2022-06-20 15:34 | Emergency (ER) | payer OTHER ==
[~2022-06-20 15:34] MED LIST: Iopamidol-370 76% 500 ML 1 ML ONE
[2022-06-20 16:31] LABS: #Eosinphils 0.4 thou/uL (0.0-0.7); #Lymphocytes 2.5 thou/uL (1.20-3.40); #Monocytes 0.8 thou/uL (0.11-0.59); #Neutrophils 4.5 thou/uL (1.40-6.50); %Basophils 0.1 % (0.0-1.0); %Eosinophils 5.2 % (0.0-10.0); %Lymphocytes 30.8 % (21.0-51.0); %Monocytes 9.1 % (0.0-10.0); %Neutrophils 54.8 % (42.0-75.0); Hemoglobin 13.6 g/dL (12.0-16.0); Mean Corpuscular HGB CONC 34.1 g/dL (32.0-36.0); Mean Corpuscular Hemoglobin 33.4 pg (27.0-31.0); Mean Platelet Volume 8.2 fL (7.4-10.4); Platelet Count 220 10x3/uL (130-400); RBC Distribution Width 12.9 % (11.5-14.5); Red Blood Cell (RBC) Count 4.07 mill/uL (4.20-5.40); White Blood Cell (WBC) Count 8.2 10x3/uL (4.8-10.8)
[2022-06-20] MEDS ORDERED: Morphine 4 MG/ML VIAL ONE (16:38)
[2022-06-20] MEDS ORDERED: Ondansetron PF 4 MG/2 ML Vial ONE (16:38)
[2022-06-20 16:53] LABS: ALT (SGPT) 14 U/L (8-55); AST (SGOT) 18 U/L (5-34); Albumin 3.3 g/dL (3.5-5.0); Alkaline Phosphatase 88 U/L (40-110); Anion Gap 14 mmol/L (10-20); BUN (Urea Nitrogen) 7 mg/dL (9.8-20.1); Bilirubin, Total 0.4 mg/dL (0.2-1.2); Calc. Creatinine Clearance 0 mL/min (70-130); Calcium 8.7 mg/dL (7.8-10.44); Carbon Dioxide 26 mmol/L (22-29); Chloride 99 mmol/L (98-107); Estimated GFR 95; Globulin 3.4 g/dL (2.4-3.5); Glucose 95 mg/dL (70-105); Lipase 16 U/L (8-78); Potassium 3.5 mmol/L (3.5-5.1); Protein, Total 6.7 g/dL (6.0-8.3); Sodium 135 mmol/L (136-145)
== END 2022-06-20 18:35 | disposition home or self-care (01) ==
LOC: ERS 15:34
DX: R10.11 Right upper quadrant pain (principal); I10 Essential (primary) hypertension; K21.9 Gastro-esophageal reflux disease without esophagitis; F17.210 Nicotine dependence, cigarettes, uncomplicated
CPT/HCPCS: 36415; 74177; 80053; 83690; 85025; 96374; 96375; J2270; J2405

== ENCOUNTER 2023-07-29 11:15 | Outpatient (CLI) | payer OTHER ==
[~2023-07-29 11:15] MED LIST changes: +Iopamidol 370 76% 100 ML VIAL ONE; -Iopamidol-370 76% 500 ML 1 ML ONE
== END 2023-07-29 11:16 | disposition home or self-care (01) ==
LOC: BICCT 11:15
PROVIDERS: ATTEND Physician Assistant Medical
DX: K21.9 Gastro-esophageal reflux disease without esophagitis (principal); K74.60 Unspecified cirrhosis of liver; R13.19 Other dysphagia; R16.1 Splenomegaly, not elsewhere classified; K44.9 Diaphragmatic hernia without obstruction or gangrene
CPT/HCPCS: 74170

== ENCOUNTER 2023-08-20 08:34 | Outpatient (CLI) | payer OTHER ==
[2023-08-20] MEDS ORDERED: Magnevist 469MG/ML 20 ML VIAL ONE (13:56)
== END 2023-08-20 08:35 | disposition home or self-care (01) ==
LOC: MRI 08:34
PROVIDERS: ATTEND Physician Assistant Medical
DX: R93.3 Abnormal findings on diagnostic imaging of other parts of digestive tract (principal); K76.0 Fatty (change of) liver, not elsewhere classified; K82.8 Other specified diseases of gallbladder; R16.1 Splenomegaly, not elsewhere classified
CPT/HCPCS: 36415; 74183; 80048; 83880; A9579

== ENCOUNTER 2023-12-21 15:32 | Inpatient (IN) | payer OTHER ==
[~2023-12-21 15:32] MED LIST changes: -Iopamidol 370 76% 100 ML VIAL ONE; +Iopamidol-370 76% 500 ML MDV (1 ML CHARGE) ONE
[2023-12-21 17:32] LABS: #Basophils 0.03 10x3/uL (0.0-0.2); #Eosinphils Less than 0.03 10x3/uL (0.0-0.7); %Basophils 0.3 % (0.0-1.0); %Eosinophils 0.2 % (0.0-10.0); %Neutrophils 63.1 % (42.0-75.0); Hematocrit 43.1 % (36.0-47.0); Hemoglobin 14.3 g/dL (12.0-16.0); Mean Corpuscular HGB CONC 33.2 g/dL (32.0-36.0); Mean Corpuscular Hemoglobin 29.7 pg (27.0-31.0); Mean Corpuscular Volume 89.4 fL (78.0-98.0); Mean Platelet Volume 10.3 fL (7.4-10.4); Platelet Count 115 10x3/uL (130-400); RBC Distribution Width 15.6 % (11.5-14.5); Red Blood Cell (RBC) Count 4.82 mill/uL (4.20-5.40)
[2023-12-21 17:52] LABS: Acetaminophen Less than 10 mcg/mL (10.0-30.0); Alcohol Less than 10.0 mg/dL (Less than 10); Magnesium 2.8 mg/dL (1.6-2.6); Salicylate Less than 8.0 mg/dL (15.0-30.0)
[2023-12-21 18:00] LABS: Amphetamine Not Detected (NotDetected); Barbiturates Screen Not Detected (NotDetected); Benzodiazepine Screen Detected (NotDetected); Bilirubin Negative (Negative); Blood, Urine Negative (Negative); CAUTI Indications for Culture Alt mental st,lethar; Clarity Turbid (Clear); Cocaine Metabolite Screen Not Detected (NotDetected); Glucose, Urine (Dipstick) Normal (Negative); Ketone, Urine Trace mg/dL (Negative); Leukocyte 75 Leu/uL (Negative); Methadone Not Detected (NotDetected); Methamphetamine Not Detected (NotDetected); Nitrite Negative (Negative); Opiate Screen Not Detected (NotDetected); Oxycodone Screen Not Detected (NotDetected); Phencyclidine (PCP) Not Detected (NotDetected); Protein, Urine (Dipstick) 10 mg/dL (Neg-Trace); RBC/HPF 0-3 HPF (0-3); Specific Gravity, Urine 1.015 (1.002-1.036); Squamous Epithelial 0-3 HPF (0-3); THC/Cannabinoid Screen Not Detected (NotDetected); Tricyclic Screen Detected (NotDetected); Urobilinogen 3 mg/dL (Less than 2); WBC/HPF 21-50 HPF (0-3)
[2023-12-21 18:03] LABS: Bacteria/HPF 3+ HPF (None Seen)
[2023-12-21 18:05] LABS: Urine Culture Reflex Yes Yes
[2023-12-21 18:08] LABS: Troponin I Less than 0.010 ng/mL (< 0.028)
[2023-12-21 18:53] LABS: Ovalocytes SLIGHT = 2-5 cells HPF (0-1); Platelet Adequacy Comment Platelets Decreased; Polychromasia SLIGHT = 2-3 cells HPF (0-2)
[2023-12-21 20:46] LABS: ALT (SGPT) 24 U/L (8-55); AST (SGOT) 44 U/L (5-34); Albumin 3.4 g/dL (3.5-5.0); Alkaline Phosphatase 106 U/L (40-110); Anion Gap 18 mmol/L (10-20); BUN (Urea Nitrogen) 21 mg/dL (9.8-20.1); Bilirubin, Total 1.5 mg/dL (0.2-1.2); Calc. Creatinine Clearance 0 mL/min (70-130); Calcium 9.1 mg/dL (7.8-10.44); Carbon Dioxide 30 mmol/L (22-29); Chloride 91 mmol/L (98-107); Estimated GFR 89; Glucose 87 mg/dL (70-105); Lipase 39 U/L (8-78); Protein, Total 7.4 g/dL (6.0-8.3); Sodium 137 mmol/L (136-145)
[2023-12-21 20:54] LABS: Potassium 2.1 mmol/L (3.5-5.1)
[2023-12-21] MEDS ORDERED: Potassium Chloride 20 MEQ TAB ONE (21:00)
[2023-12-21] MEDS ORDERED: Ketorolac Tromethamine 30 MG (1 mL) VIAL ONE (21:08)
[2023-12-21] MEDS ORDERED: cefTRIAXone (ROCEPHIN) 2 GM VIAL ONE (21:50)
[2023-12-21] MEDS ORDERED: Sodium Chloride 0.9% 100 ML ONE (21:50)
[2023-12-21] MEDS ORDERED: Albuterol 200 PUFF (6.7GM INHALER) INH PRN (23:09)
[2023-12-21] MEDS ORDERED: Ondansetron PF 4 MG/2 ML Vial IVP PRN (23:13)
[2023-12-21] MEDS ORDERED: Dextrose 5% in Water 1,000 ML IV PRN (23:13)
[2023-12-21] MEDS ORDERED: Glucagon 1 MG/ML KIT IM PRN (23:13)
[2023-12-21] MEDS ORDERED: Dextrose 50% Abboject 50 ML SYRINGE SLOW IVP PRN (23:13)
[2023-12-21 23:43] VITALS: BMI 44.6
[2023-12-21] MEDS: Lactulose 20 GM (30 mL) UDCUP PO SCH (23:57)
[2023-12-21] MEDS: Potassium Chloride 20 MEQ in Premix 1 BAG IVPB SCH (23:58)
[2023-12-22] MEDS: Lactated Ringer's 1,000 ML IV SCH (00:11)
[2023-12-22 05:40] LABS: #Basophils 0.06 10x3/uL (0.0-0.2); %Basophils 0.5 % (0.0-1.0); %Eosinophils 0.4 % (0.0-10.0); %Lymphocytes 25.6 % (21.0-51.0); %Neutrophils 63.3 % (42.0-75.0); Hematocrit 41.5 % (36.0-47.0); Hemoglobin 13.6 g/dL (12.0-16.0); Mean Corpuscular HGB CONC 32.8 g/dL (32.0-36.0); Mean Corpuscular Hemoglobin 29.1 pg (27.0-31.0); Mean Corpuscular Volume 88.9 fL (78.0-98.0); Mean Platelet Volume 10.7 fL (7.4-10.4); Platelet Count 122 10x3/uL (130-400); RBC Distribution Width 16.3 % (11.5-14.5); Red Blood Cell (RBC) Count 4.67 mill/uL (4.20-5.40)
[2023-12-22 05:55] LABS: Anion Gap 16 mmol/L (10-20); BUN (Urea Nitrogen) 23 mg/dL (9.8-20.1); Calc. Creatinine Clearance 136 mL/min (70-130); Calcium 8.7 mg/dL (7.8-10.44); Carbon Dioxide 32 mmol/L (22-29); Chloride 93 mmol/L (98-107); Estimated GFR 79; Glucose 103 mg/dL (70-105); Potassium 2.6 mmol/L (3.5-5.1); Sodium 138 mmol/L (136-145)
[2023-12-22] MEDS: Morphine 4 MG/ML VIAL SLOW IVP SCH (06:36)
[2023-12-22] MEDS: Cefepime 1 GM in Sodium Chloride 0.9% 100 ML IVPB SCH (08:50)
[2023-12-22] MEDS: CeleCOXIB 100 MG CAP PO SCH (08:51)
[2023-12-22] MEDS: Naloxone HCl 0.4 mg/ml Vial ONE (09:02)
[2023-12-22] MEDS: Aspirin 81 mg Enteric Coated Tablet PO SCH (09:03)
[2023-12-22] MEDS: Cholecalciferol 1,000 UNITS (25 MCG) TAB PO SCH (09:03)
[2023-12-22] MEDS: Cyanocobalamin (Vitamin B-12) 1,000 MCG TAB PO SCH (09:04)
[2023-12-22] MEDS: Lactulose 20 GM (30 mL) UDCUP PO SCH (09:56)
[2023-12-22 13:31] VITALS: BMI 44.6
[2023-12-22 14:26] LABS: Anion Gap 11 mmol/L (10-20); BUN (Urea Nitrogen) 22 mg/dL (9.8-20.1); Calc. Creatinine Clearance 148 mL/min (70-130); Calcium 8.8 mg/dL (7.8-10.44); Carbon Dioxide 30 mmol/L (22-29); Chloride 96 mmol/L (98-107); Estimated GFR 88; Glucose 108 mg/dL (70-105); Potassium 2.4 mmol/L (3.5-5.1); Sodium 135 mmol/L (136-145)
[2023-12-22] MEDS ORDERED: Electrolyte Replacement Protocol 1 EACH FS SCH (15:00)
[2023-12-22] MEDS: Potassium Chloride 20 MEQ (100 mL) BAG ONE (15:51)
[2023-12-22] MEDS: Potassium Chloride 20 MEQ TAB PO SCH (15:52)
[2023-12-22] MEDS: Potassium Chloride 20 MEQ in Premix 1 BAG IVPB SCH (16:04)
[2023-12-22] MEDS: levETIRAcetam 500 MG (5 mL) VIAL SLOW IVP SCH (17:59)
[2023-12-22] MEDS: Atorvastatin Calcium 40 MG TAB PO SCH (21:20)
[2023-12-22] MEDS: Pantoprazole DR 40 MG TAB PO SCH (21:21)
[2023-12-22 22:11] LABS: INR-International Normal Ratio 1.2; Prothrombin Time 15.3 sec (12.0-14.7)
[2023-12-22 22:12] LABS: PTT 31.7 sec (22.9-36.1)
[2023-12-22 22:15] LABS: Anion Gap 12 mmol/L (10-20); BUN (Urea Nitrogen) 20 mg/dL (9.8-20.1); Calc. Creatinine Clearance 131 mL/min (70-130); Calcium 8.8 mg/dL (7.8-10.44); Carbon Dioxide 28 mmol/L (22-29); Chloride 99 mmol/L (98-107); Estimated GFR 76; Glucose 121 mg/dL (70-105); Potassium 2.8 mmol/L (3.5-5.1); Sodium 136 mmol/L (136-145)
[2023-12-23 03:30] LABS: #Basophils 0.03 10x3/uL (0.0-0.2); %Basophils 0.3 % (0.0-1.0); %Eosinophils 1.5 % (0.0-10.0); %Lymphocytes 30.2 % (21.0-51.0); %Monocytes 9.4 % (0.0-10.0); %Neutrophils 58.3 % (42.0-75.0); Hematocrit 41.1 % (36.0-47.0); Hemoglobin 13.3 g/dL (12.0-16.0); Mean Corpuscular HGB CONC 32.4 g/dL (32.0-36.0); Mean Corpuscular Hemoglobin 29.7 pg (27.0-31.0); Mean Corpuscular Volume 91.7 fL (78.0-98.0); Mean Platelet Volume 10.8 fL (7.4-10.4); Platelet Count 102 10x3/uL (130-400); RBC Distribution Width 16.6 % (11.5-14.5); Red Blood Cell (RBC) Count 4.48 mill/uL (4.20-5.40)
[2023-12-23] MEDS: Potassium Chloride 20 MEQ TAB PO SCH ×2 (03:30→16:45)
[2023-12-23 03:45] LABS: ALT (SGPT) 25 U/L (8-55); AST (SGOT) 41 U/L (5-34); Albumin 3.1 g/dL (3.5-5.0); Alkaline Phosphatase 98 U/L (40-110); Anion Gap 14 mmol/L (10-20); BUN (Urea Nitrogen) 21 mg/dL (9.8-20.1); Bilirubin, Total 1.5 mg/dL (0.2-1.2); Calc. Creatinine Clearance 131 mL/min (70-130); Calcium 8.7 mg/dL (7.8-10.44); Carbon Dioxide 26 mmol/L (22-29); Chloride 101 mmol/L (98-107); Estimated GFR 76; Globulin 3.6 g/dL (2.4-3.5); Glucose 108 mg/dL (70-105); Magnesium 2.5 mg/dL (1.6-2.6); Potassium 2.8 mmol/L (3.5-5.1); Protein, Total 6.7 g/dL (6.0-8.3); Sodium 138 mmol/L (136-145)
[2023-12-23] MEDS: Enoxaparin 40 MG (0.4 mL) SYRINGE SC SCH (10:15)
[2023-12-23] MEDS: levETIRAcetam 500 MG (5 mL) VIAL SLOW IVP SCH (10:16)
[2023-12-23] MEDS: Acetaminophen 325 MG TAB PO PRN (11:34)
[2023-12-23 15:03] LABS: Anion Gap 14 mmol/L (10-20); BUN (Urea Nitrogen) 20 mg/dL (9.8-20.1); Calc. Creatinine Clearance 133 mL/min (70-130); Calcium 8.9 mg/dL (7.8-10.44); Carbon Dioxide 25 mmol/L (22-29); Chloride 100 mmol/L (98-107); Estimated GFR 77; Glucose 157 mg/dL (70-105); Potassium 2.7 mmol/L (3.5-5.1); Sodium 136 mmol/L (136-145)
[2023-12-23] MEDS: Topiramate 100 MG TAB PO SCH (20:16)
[2023-12-23] MEDS: Sertraline 100 MG TAB PO SCH (20:17)
[2023-12-23] MEDS: Lactulose 20 GM (30 mL) UDCUP PO SCH (20:18)
[2023-12-23] MEDS ORDERED: Amitriptyline HCl 25 MG TAB PO SCH (21:00)
[2023-12-23] MEDS ORDERED: Milnacipran Hcl [Savella] 100 MG Tablet PO SCH (21:00)
[2023-12-23] MEDS: Rifaximin 550 MG TAB PO SCH (22:48)
[2023-12-24 04:27] LABS: #Basophils 0.04 10x3/uL (0.0-0.2); %Basophils 0.5 % (0.0-1.0); %Eosinophils 2.5 % (0.0-10.0); %Lymphocytes 31.6 % (21.0-51.0); %Monocytes 8.8 % (0.0-10.0); %Neutrophils 56.5 % (42.0-75.0); Hematocrit 39.8 % (36.0-47.0); Hemoglobin 12.8 g/dL (12.0-16.0); Mean Corpuscular HGB CONC 32.2 g/dL (32.0-36.0); Mean Corpuscular Hemoglobin 29.9 pg (27.0-31.0); Mean Platelet Volume 10.5 fL (7.4-10.4); Platelet Count 105 10x3/uL (130-400); RBC Distribution Width 16.5 % (11.5-14.5); Red Blood Cell (RBC) Count 4.28 mill/uL (4.20-5.40)
[2023-12-24 04:38] LABS: ALT (SGPT) 24 U/L (8-55); AST (SGOT) 40 U/L (5-34); Albumin 2.7 g/dL (3.5-5.0); Alkaline Phosphatase 96 U/L (40-110); Anion Gap 11 mmol/L (10-20); BUN (Urea Nitrogen) 19 mg/dL (9.8-20.1); Bilirubin, Total 1.1 mg/dL (0.2-1.2); Calc. Creatinine Clearance 156 mL/min (70-130); Calcium 8.5 mg/dL (7.8-10.44); Carbon Dioxide 24 mmol/L (22-29); Chloride 103 mmol/L (98-107); Estimated GFR 93; Globulin 3.5 g/dL (2.4-3.5); Glucose 102 mg/dL (70-105); Magnesium 2.2 mg/dL (1.6-2.6); Potassium 3.2 mmol/L (3.5-5.1); Protein, Total 6.2 g/dL (6.0-8.3); Sodium 135 mmol/L (136-145)
[2023-12-24 05:05] LABS: HBCM Index 0.11 S/CO (0-0.79); HBsAg Index 0.42 S/CO (0-0.99); Hep A IgM AB NONREACTIVE (NonReactive); Hep A IgM S/CO 0.19 S/CO (0-0.79); Hep B Surf Ag NONREACTIVE S/CO (NonReactive); Hep C IgG Ab NONREACTIVE S/CO (NonReactive); Hep C Index 0.15 S/CO (0-0.79); Hepatitis B Core IgM Abs NONREACTIVE S/CO (NonReactive)
[2023-12-24] MEDS: Cholecalciferol 1,000 UNITS (25 MCG) TAB PO SCH (08:27)
[2023-12-24] MEDS: Dicyclomine 20 MG TAB PO PRN (08:28)
[2023-12-24] MEDS: Potassium Chloride 20 MEQ TAB PO SCH (08:28)
[2023-12-24] MEDS: Rifaximin 550 MG TAB PO SCH (08:41)
[2023-12-24] MEDS ORDERED: Rosuvastatin 20 MG TAB PO SCH (09:00)
[2023-12-24] MEDS: Sodium Chloride 0.9% 1,000 ML IV SCH (12:20)
[2023-12-24] MEDS: NS 0.9% w/ 20 MEQ KCL 1,000 ML/1,000 ML BAG IV SCH (14:33)
[2023-12-24] MEDS: HYDROcodone/Acetaminophen 5/325 mg Tablet PO PRN (15:22)
[2023-12-24] MEDS: Diazepam 5 MG TAB PO PRN (15:23)
[2023-12-24] MEDS: levETIRAcetam 500 MG TAB PO SCH (19:57)
[2023-12-24] MEDS: Ciprofloxacin 500 MG TAB PO SCH (19:58)
[2023-12-25 04:19] LABS: #Basophils Less than 0.03 10x3/uL (0.0-0.2); %Basophils 0.3 % (0.0-1.0); %Eosinophils 3.9 % (0.0-10.0); %Lymphocytes 40.3 % (21.0-51.0); %Monocytes 9.5 % (0.0-10.0); %Neutrophils 45.7 % (42.0-75.0); Hematocrit 39.3 % (36.0-47.0); Hemoglobin 12.7 g/dL (12.0-16.0); Mean Corpuscular HGB CONC 32.3 g/dL (32.0-36.0); Mean Corpuscular Hemoglobin 29.4 pg (27.0-31.0); Mean Platelet Volume 11.1 fL (7.4-10.4); Platelet Count 101 10x3/uL (130-400); RBC Distribution Width 16.9 % (11.5-14.5); Red Blood Cell (RBC) Count 4.32 mill/uL (4.20-5.40)
[2023-12-25 04:46] LABS: ALT (SGPT) 20 U/L (8-55); AST (SGOT) 29 U/L (5-34); Albumin 2.6 g/dL (3.5-5.0); Alkaline Phosphatase 81 U/L (40-110); Anion Gap 9 mmol/L (10-20); BUN (Urea Nitrogen) 18 mg/dL (9.8-20.1); Bilirubin, Total 0.9 mg/dL (0.2-1.2); Calc. Creatinine Clearance 175 mL/min (70-130); Calcium 8.3 mg/dL (7.8-10.44); Carbon Dioxide 23 mmol/L (22-29); Chloride 108 mmol/L (98-107); Estimated GFR 103; Globulin 3.4 g/dL (2.4-3.5); Glucose 90 mg/dL (70-105); Magnesium 2.1 mg/dL (1.6-2.6); Potassium 3.4 mmol/L (3.5-5.1); Sodium 137 mmol/L (136-145)
[2023-12-25] MEDS: Potassium Chloride 20 MEQ TAB PO SCH (09:07)
[2023-12-26 05:31] LABS: #Basophils Less than 0.03 10x3/uL (0.0-0.2); %Basophils 0.4 % (0.0-1.0); %Eosinophils 2.9 % (0.0-10.0); %Lymphocytes 41.3 % (21.0-51.0); %Monocytes 10.9 % (0.0-10.0); %Neutrophils 44.3 % (42.0-75.0); Hematocrit 40.1 % (36.0-47.0); Hemoglobin 12.4 g/dL (12.0-16.0); Mean Corpuscular HGB CONC 30.9 g/dL (32.0-36.0); Mean Corpuscular Hemoglobin 29.5 pg (27.0-31.0); Mean Corpuscular Volume 95.2 fL (78.0-98.0); Mean Platelet Volume 10.7 fL (7.4-10.4); Platelet Count 105 10x3/uL (130-400); RBC Distribution Width 16.8 % (11.5-14.5); Red Blood Cell (RBC) Count 4.21 mill/uL (4.20-5.40)
[2023-12-26 06:06] LABS: Anion Gap 10 mmol/L (10-20); BUN (Urea Nitrogen) 14 mg/dL (9.8-20.1); Calc. Creatinine Clearance 169 mL/min (70-130); Carbon Dioxide 18 mmol/L (22-29); Chloride 114 mmol/L (98-107); Potassium 3.7 mmol/L (3.5-5.1); Sodium 138 mmol/L (136-145)
[2023-12-26 06:07] LABS: ALT (SGPT) 24 U/L (8-55); AST (SGOT) 40 U/L (5-34); Albumin 2.6 g/dL (3.5-5.0); Alkaline Phosphatase 102 U/L (40-110); Bilirubin, Total 0.5 mg/dL (0.2-1.2); Calcium 8.3 mg/dL (7.8-10.44); Estimated GFR 102; Globulin 3.4 g/dL (2.4-3.5); Glucose 90 mg/dL (70-105); Magnesium 2.1 mg/dL (1.6-2.6)
[2023-12-26 12:48] VITALS: BP 122/76; TEMP 98.5
== END 2023-12-26 17:00 | disposition home health service (06) | DRG 689 ==
LOC: ERS 15:32 → 2SE 22:02 → OBSVTOIN 12-23 09:41
PROVIDERS: ADMIT Student in an Organized Health Care Education/Training Program; ATTEND Family Medicine
PROC: 4A00X4Z Measurement of Central Nervous Electrical Activity, External Approach (ICD-10-PCS; principal; 2023-12-23)
DX: N39.0 Urinary tract infection, site not specified (principal); G93.41 Metabolic encephalopathy; E72.20 Disorder of urea cycle metabolism, unspecified; Z68.41 Body mass index [BMI] 40.0-44.9, adult; K74.60 Unspecified cirrhosis of liver; E11.9 Type 2 diabetes mellitus without complications; G40.909 Epilepsy, unspecified, not intractable, without status epilepticus; I10 Essential (primary) hypertension; K76.82 Hepatic encephalopathy; E66.01 Morbid (severe) obesity due to excess calories; E83.42 Hypomagnesemia; B96.20 Unspecified Escherichia coli [E. coli] as the cause of diseases classified elsewhere; Z79.82 Long term (current) use of aspirin; Z79.899 Other long term (current) drug therapy; Z90.49 Acquired absence of other specified parts of digestive tract; Z89.9 Acquired absence of limb, unspecified
CPT/HCPCS: 36415; 36416; 51701; 70450; 70551; 71045; 72125; 74177; 80048; 80053; 80074; 80306; 80307; 81001; 82140; 82550; 83605; 83690; 83735; 83880; 84443; 84484; 85025; 85610; 85730; 87040; 87077; 87086; 87186; 93005; 93306; 95700; 95711; 95819; 96365; 96374; 96375; 96376; G0378; J0692; J0696; J1650; J1885; J1953; J2270; J3480; J3490; J7050; J7120; Q9967

== ENCOUNTER 2024-02-18 07:55 | Observation (INO) | payer OTHER ==
[2024-02-18 09:26] LABS: #Basophils Less than 0.03 10x3/uL (0.0-0.2); #Eosinphils Less than 0.03 10x3/uL (0.0-0.7); %Basophils 0.3 % (0.0-1.0); %Eosinophils 0.2 % (0.0-10.0); %Lymphocytes 18.1 % (21.0-51.0); %Monocytes 7.6 % (0.0-10.0); %Neutrophils 73.5 % (42.0-75.0); Hematocrit 44.6 % (36.0-47.0); Hemoglobin 14.7 g/dL (12.0-16.0); Mean Corpuscular Hemoglobin 29.6 pg (27.0-31.0); Mean Corpuscular Volume 89.9 fL (78.0-98.0); Mean Platelet Volume 11.1 fL (7.4-10.4); Platelet Count 104 10x3/uL (130-400); RBC Distribution Width 15.4 % (11.5-14.5); Red Blood Cell (RBC) Count 4.96 mill/uL (4.20-5.40)
[2024-02-18] MEDS ORDERED: Morphine 4 MG/ML VIAL ONE (09:30)
[2024-02-18] MEDS ORDERED: Ondansetron PF 4 MG/2 ML Vial ONE ×2 (09:30→13:11)
[2024-02-18 10:19] LABS: ALT (SGPT) 18 U/L (8-55); AST (SGOT) 41 U/L (5-34); Albumin 3.6 g/dL (3.5-5.0); Alkaline Phosphatase 96 U/L (40-110); Anion Gap 16 mmol/L (10-20); BUN (Urea Nitrogen) 9 mg/dL (9.8-20.1); Bilirubin, Total 1.3 mg/dL (0.2-1.2); Calc. Creatinine Clearance 0 mL/min (70-130); Calcium 9.2 mg/dL (7.8-10.44); Carbon Dioxide 22 mmol/L (22-29); Chloride 104 mmol/L (98-107); Estimated GFR 74; Globulin 3.7 g/dL (2.4-3.5); Glucose 135 mg/dL (70-105); Lipase 20 U/L (8-78); Potassium 3.5 mmol/L (3.5-5.1); Protein, Total 7.3 g/dL (6.0-8.3); Sodium 138 mmol/L (136-145)
[2024-02-18 11:03] LABS: Bilirubin Negative (Negative); Blood, Urine 3+ (Negative); CAUTI Indications for Culture Pelvic or flank pain; Clarity Clear (Clear); Glucose, Urine (Dipstick) Normal (Negative); Ketone, Urine Negative (Negative); Leukocyte Negative Leu/uL (Negative); Nitrite Negative (Negative); Protein, Urine (Dipstick) 20 mg/dL (Neg-Trace); RBC/HPF 21-50 HPF (0-3); Specific Gravity, Urine 1.042 (1.002-1.036); Squamous Epithelial 0-3 HPF (0-3); Urobilinogen Normal mg/dL (Less than 2); WBC/HPF 0-3 HPF (0-3)
[2024-02-18 11:04] LABS: Bacteria/HPF 1+ HPF (None Seen)
[2024-02-18 11:05] LABS: Urine Culture Reflex No No
[2024-02-18] MEDS ORDERED: LevoFLOXacin D5W 500 mg (100 mL) BAG ONE (13:11)
[2024-02-18] MEDS ORDERED: Morphine 2 MG/ML VIAL ONE (13:11)
[2024-02-18] MEDS ORDERED: Ketorolac Tromethamine 30 MG (1 mL) VIAL IVP PRN (13:32)
[2024-02-18] MEDS ORDERED: traMADol HCl 50 MG TAB PO PRN (13:32)
[2024-02-18] MEDS ORDERED: Dextrose 5% in Water 1,000 ML IV PRN (13:35)
[2024-02-18] MEDS ORDERED: Dextrose 50% Abboject 50 ML SYRINGE SLOW IVP PRN (13:35)
[2024-02-18] MEDS ORDERED: Glucagon 1 MG/ML KIT IM PRN (13:35)
[2024-02-18] MEDS ORDERED: Insulin Lispro 100 UNIT/ML 10 ML VIAL SC PRN ×2 (13:35)
[2024-02-18] MEDS ORDERED: Promethazine HCl 25 MG/ML VIAL ONE (14:27)
[2024-02-18] MEDS: Acetaminophen 325 MG TAB PO SCH (16:08)
[2024-02-18] MEDS: Lactated Ringer's 500 ML IV SCH (16:08)
[2024-02-18] MEDS: LevoFLOXacin 250 mg/D5W 250 MG in Premix 1 BAG IVPB SCH (16:09)
[2024-02-18 16:31] VITALS: BMI 42.2
[2024-02-18] MEDS ORDERED: Doxepin HCl 10 MG CAP PO PRN (16:33)
[2024-02-18] MEDS: Pantoprazole 40 MG VIAL IVP SCH (17:37)
[2024-02-18] MEDS: Sertraline 25 MG TAB PO SCH (20:13)
[2024-02-18] MEDS: Rifaximin 550 MG TAB PO SCH (20:14)
[2024-02-18] MEDS: Topiramate 100 MG TAB PO SCH (20:14)
[2024-02-18] MEDS: levETIRAcetam 500 MG TAB PO SCH (20:14)
[2024-02-18] MEDS: traMADol HCl 50 MG TAB PO PRN (20:21)
[2024-02-18] MEDS ORDERED: Milnacipran Hcl [Savella] 100 MG Tablet PO SCH (21:00)
[2024-02-18] MEDS: Ondansetron PF 4 MG/2 ML Vial IVP PRN (21:37)
[2024-02-18] MEDS: Morphine 4 MG/ML VIAL SLOW IVP PRN (21:37)
[2024-02-19] MEDS: Ondansetron ODT 4 MG TAB PO PRN (04:11)
[2024-02-19 05:22] LABS: #Basophils 0.04 10x3/uL (0.0-0.2); %Basophils 0.6 % (0.0-1.0); %Eosinophils 1.4 % (0.0-10.0); %Lymphocytes 38.3 % (21.0-51.0); %Neutrophils 47.5 % (42.0-75.0); Hematocrit 39.7 % (36.0-47.0); Hemoglobin 12.6 g/dL (12.0-16.0); Mean Corpuscular HGB CONC 31.7 g/dL (32.0-36.0); Mean Corpuscular Hemoglobin 28.8 pg (27.0-31.0); Mean Corpuscular Volume 90.8 fL (78.0-98.0); Platelet Count 95 10x3/uL (130-400); RBC Distribution Width 15.9 % (11.5-14.5); Red Blood Cell (RBC) Count 4.37 mill/uL (4.20-5.40)
[2024-02-19 05:33] LABS: ALT (SGPT) 14 U/L (8-55); AST (SGOT) 37 U/L (5-34); Albumin 2.9 g/dL (3.5-5.0); Alkaline Phosphatase 74 U/L (40-110); Anion Gap 11 mmol/L (10-20); BUN (Urea Nitrogen) 8 mg/dL (9.8-20.1); Bilirubin, Total 1.1 mg/dL (0.2-1.2); Calc. Creatinine Clearance 119 mL/min (70-130); Calcium 8.6 mg/dL (7.8-10.44); Carbon Dioxide 24 mmol/L (22-29); Chloride 105 mmol/L (98-107); Estimated GFR 70; Globulin 3.3 g/dL (2.4-3.5); Glucose 115 mg/dL (70-105); Potassium 2.9 mmol/L (3.5-5.1); Protein, Total 6.2 g/dL (6.0-8.3); Sodium 137 mmol/L (136-145)
[2024-02-19] MEDS ORDERED: Potassium Chloride 40 MEQ in Premix 1 BAG IVPB SCH (07:45)
[2024-02-19 08:28] VITALS: TEMP 98
[2024-02-19] MEDS: Potassium Chloride 20 MEQ in Premix 1 BAG IVPB SCH (08:39)
[2024-02-19] MEDS: Potassium Chloride 20 MEQ TAB PO SCH ×2 (08:49→11:36)
[2024-02-19] MEDS: Pantoprazole 40 MG VIAL IVP SCH (08:51)
[2024-02-19] MEDS: Enoxaparin 40 MG (0.4 mL) SYRINGE SC SCH (08:52)
[2024-02-19] MEDS: Pantoprazole DR 40 MG TAB PO SCH (11:36)
[2024-02-19 12:18] VITALS: BP 107/69
[2024-02-19] MEDS ORDERED: LevoFLOXacin 750 mg/D5W 750 MG in Premix 1 BAG IVPB SCH (13:00)
[2024-02-19] MEDS ORDERED: Rosuvastatin 20 MG TAB PO SCH (21:00)
== END 2024-02-19 12:46 | disposition home or self-care (01) ==
LOC: ERS 07:55 → ERHOLD 13:32 → MSONC 15:19
PROVIDERS: ADMIT Family Medicine; ATTEND Family Medicine
DX: N13.30 Unspecified hydronephrosis (principal); E11.9 Type 2 diabetes mellitus without complications; F32.A Depression, unspecified; F41.9 Anxiety disorder, unspecified; G40.909 Epilepsy, unspecified, not intractable, without status epilepticus; E66.9 Obesity, unspecified; M79.7 Fibromyalgia; Z79.899 Other long term (current) drug therapy
CPT/HCPCS: 74176; 74177; 80053 ×2; 81001; 82962 ×2; 83605; 83690; 83735; 84145; 85025 ×2; 86141; 87040; 87086; 93005; 96361; 96365; 96367; 96375; 96376; 99285; J1956; J2272 ×3; J2405; J2470; J2550; Q0162; Q9967; 36415; 36416; G0378; J3480

== ENCOUNTER 2024-08-05 10:21 | Outpatient (CLI) | payer OTHER | END 2024-08-05 10:22 | disposition home or self-care (01) | LOC: BICCT 10:21 | PROVIDERS: ATTEND Physician Assistant Medical | DX: K74.60 Unspecified cirrhosis of liver (principal); R11.2 Nausea with vomiting, unspecified; R10.13 Epigastric pain; R19.7 Diarrhea, unspecified; K63.89 Other specified diseases of intestine; R16.1 Splenomegaly, not elsewhere classified | CPT/HCPCS: 74177 ==

== ENCOUNTER 2025-01-25 11:24 | Outpatient (CLI) | payer OTHER, MEDICAID ==
[2025-01-25 13:22] LABS: INR-International Normal Ratio 1.1; PTT 24.3 sec (22.9-36.1); Prothrombin Time 14.0 sec (12.0-14.7)
[2025-01-25 13:29] LABS: Anion Gap 10 mmol/L (10-20); BUN (Urea Nitrogen) 12 mg/dL (9.8-20.1); Calc. Creatinine Clearance 0 mL/min (70-130); Calcium 8.9 mg/dL (7.8-10.44); Carbon Dioxide 25 mmol/L (22-29); Chloride 106 mmol/L (98-107); Glucose 114 mg/dL (70-105); Potassium 4.3 mmol/L (3.5-5.1); Sodium 137 mmol/L (136-145)
[2025-01-25 13:31] LABS: #Basophils 0.03 10x3/uL (0.0-0.2); #Eosinophils 0.05 10x3/uL (0.0-0.7); #Monocytes 0.59 10x3/uL (0.11-0.59); #Neutrophils 2.25 10x3/uL (1.40-6.50); %Basophils 0.6 % (0.0-1.0); %Eosinophils 1.1 % (0.0-10.0); %Lymphocytes 37.3 % (21.0-51.0); %Monocytes 12.6 % (0.0-10.0); %Neutrophils 48.2 % (42.0-75.0); ALT (SGPT) 22 U/L (Less than 34); AST (SGOT) 39 U/L (11-34); Albumin 3.4 g/dL (3.1-4.5); Alkaline Phosphatase 130 U/L (40-110); Bilirubin, Direct 0.2 mg/dL (0.1-0.3); Bilirubin, Total 0.6 mg/dL (0.3-1.2); Hematocrit 41.0 % (36.0-47.0); Hemoglobin 13.3 g/dL (12.0-16.0); Mean Corpuscular Hemoglobin 29.7 pg (27.0-31.0); Mean Corpuscular Volume 91.5 fL (78.0-98.0); Platelet Count 124 10x3/uL (130-400); Red Blood Cell (RBC) Count 4.48 mill/uL (4.20-5.40); White Blood Cell (WBC) Count 4.67 10x3/uL (4.8-10.8)
[2025-01-25 14:06] LABS: Anisocytosis SLIGHT = 6-15 cells HPF (0-5); Platelet Adequacy Comment Platelets Normal; Polychromasia SLIGHT = 2-3 cells HPF (0-2)
== END 2025-01-25 11:25 | disposition home or self-care (01) ==
LOC: LABBT 11:24
PROVIDERS: ATTEND Neurological Surgery
DX: Z01.818 Encounter for other preprocedural examination (principal); M51.360 Other intervertebral disc degeneration, lumbar region with discogenic back pain only
CPT/HCPCS: 80048; 80076; 85025; 85610; 85730

== ENCOUNTER 2025-01-27 06:22 | Inpatient (IN) | payer OTHER, MEDICAID ==
[2025-01-25 11:57] VITALS: BMI 39.9
[2025-01-27] MEDS ORDERED: PROPOFOL 20 ML ONE (06:40)
[2025-01-27] MEDS ORDERED: fentaNYL PF 100 MCG/2 ML SYRINGE ONE ×3 (06:40→12:03)
[2025-01-27] MEDS ORDERED: Thrombin 5000 UNITS/5 ML VIAL ONE (06:41)
[2025-01-27] MEDS ORDERED: Rocuronium Bromide 10 MG/ML (10ML VIAL) ONE (06:51)
[2025-01-27] MEDS ORDERED: Lidocaine 1% PF 5 ML VIAL ONE (06:51)
[2025-01-27] MEDS ORDERED: CEFAZOLIN 2 GM VIAL ONE (07:42)
[2025-01-27] MEDS ORDERED: Ondansetron PF 4 MG/2 ML Vial ONE (09:35)
[2025-01-27] MEDS ORDERED: HYDROmorphone 2 MG/ML VIAL ONE (10:16)
[2025-01-27] MEDS ORDERED: SUGAMMADEX SODIUM 200 MG/2 ML VIAL ONE (10:22)
[2025-01-27] MEDS ORDERED: diphenhydrAMINE 50 MG/ML VIAL IVP PRN (10:38)
[2025-01-27] MEDS ORDERED: Bisacodyl 10 MG SUPP PR PRN (10:38)
[2025-01-27] MEDS ORDERED: Furosemide 20 MG TAB PO PRN (10:40)
[2025-01-27] MEDS ORDERED: Non-Formulary Item 1 EACH (Lactulose 10 Gm/15ml Oral Sol 10 GM/15 ML Ml) PO PRN (10:40)
[2025-01-27] MEDS ORDERED: Cyclobenzaprine 10 MG TAB ONE (12:19)
[2025-01-27] MEDS: Cyclobenzaprine 10 MG TAB PO PRN (12:31)
[2025-01-27] MEDS ORDERED: HYDROmorphone 0.5 MG/0.5 ML SYR SLOW IVP PRN (14:15)
[2025-01-27] MEDS: Ondansetron PF 4 MG/2 ML Vial IVP SCH (15:10)
[2025-01-27] MEDS: Gabapentin 100 MG CAP PO SCH (19:53)
[2025-01-27] MEDS: oxyCODONE 5 MG TAB PO PRN (19:53)
[2025-01-28 06:25] LABS: #Basophils 0.04 10x3/uL (0.0-0.2); #Eosinophils 0.03 10x3/uL (0.0-0.7); #Monocytes 1.69 10x3/uL (0.11-0.59); #Neutrophils 5.22 10x3/uL (1.40-6.50); %Basophils 0.4 % (0.0-1.0); %Eosinophils 0.3 % (0.0-10.0); %Lymphocytes 23.3 % (21.0-51.0); %Monocytes 18.5 % (0.0-10.0); %Neutrophils 57.2 % (42.0-75.0); Hematocrit 36.0 % (36.0-47.0); Hemoglobin 11.5 g/dL (12.0-16.0); Mean Corpuscular Hemoglobin 29.7 pg (27.0-31.0); Mean Corpuscular Volume 93.0 fL (78.0-98.0); Platelet Count 138 10x3/uL (130-400); Red Blood Cell (RBC) Count 3.87 mill/uL (4.20-5.40); White Blood Cell (WBC) Count 9.14 10x3/uL (4.8-10.8)
[2025-01-28 06:52] LABS: Anion Gap 15 mmol/L (10-20); BUN (Urea Nitrogen) 13 mg/dL (9.8-20.1); Calc. Creatinine Clearance 157 mL/min (70-130); Calcium 8.3 mg/dL (7.8-10.44); Carbon Dioxide 19 mmol/L (22-29); Chloride 103 mmol/L (98-107); Glucose 99 mg/dL (70-105); Potassium 4.6 mmol/L (3.5-5.1); Sodium 132 mmol/L (136-145)
[2025-01-28] MEDS: Pantoprazole 40 MG DR.TAB PO SCH (10:34)
[2025-01-28] MEDS: Acetaminophen 325 MG TAB PO PRN (13:01)
[2025-01-28] MEDS: Rifaximin 550 MG TAB PO SCH (21:37)
[2025-01-28] MEDS: Transdermal Patch Removal TOP SCH (21:37)
[2025-01-29 05:44] LABS: #Basophils 0.04 10x3/uL (0.0-0.2); #Eosinophils 0.12 10x3/uL (0.0-0.7); #Monocytes 1.21 10x3/uL (0.11-0.59); #Neutrophils 4.28 10x3/uL (1.40-6.50); %Basophils 0.5 % (0.0-1.0); %Eosinophils 1.5 % (0.0-10.0); %Lymphocytes 29.3 % (21.0-51.0); %Monocytes 15.1 % (0.0-10.0); %Neutrophils 53.5 % (42.0-75.0); Hematocrit 33.6 % (36.0-47.0); Hemoglobin 10.7 g/dL (12.0-16.0); Mean Corpuscular Hemoglobin 29.5 pg (27.0-31.0); Mean Corpuscular Volume 92.6 fL (78.0-98.0); Platelet Count 105 10x3/uL (130-400); Red Blood Cell (RBC) Count 3.63 mill/uL (4.20-5.40); White Blood Cell (WBC) Count 8.00 10x3/uL (4.8-10.8)
[2025-01-29 05:48] LABS: Anion Gap 9 mmol/L (10-20); BUN (Urea Nitrogen) 13 mg/dL (9.8-20.1); Calc. Creatinine Clearance 142 mL/min (70-130); Calcium 8.1 mg/dL (7.8-10.44); Carbon Dioxide 27 mmol/L (22-29); Chloride 101 mmol/L (98-107); Glucose 103 mg/dL (70-105); Potassium 4.0 mmol/L (3.5-5.1); Sodium 133 mmol/L (136-145)
[2025-01-29 13:25] LABS: Bacteria/HPF None Seen HPF (None Seen); CAUTI Indications for Culture Fever or rigors; Glucose, Urine (Dipstick) Normal (Negative); Leukocyte Negative Leu/uL (Negative); Protein, Urine (Dipstick) Negative (Neg-Trace); RBC/HPF 0-3 HPF (0-3); Specific Gravity, Urine 1.019 (1.002-1.036); WBC/HPF 0-3 HPF (0-3)
[2025-01-29 13:33] LABS: Urine Culture Reflex No No
[2025-01-30] MEDS: Lactulose 20 GM (30 mL) UDCUP PO PRN (05:31)
[2025-01-30 14:18] LABS: #Basophils Less than 0.03 10x3/uL (0.0-0.2); #Eosinophils 0.11 10x3/uL (0.0-0.7); #Monocytes 0.58 10x3/uL (0.11-0.59); #Neutrophils 2.96 10x3/uL (1.40-6.50); %Basophils 0.4 % (0.0-1.0); %Eosinophils 2.2 % (0.0-10.0); %Lymphocytes 26.5 % (21.0-51.0); %Monocytes 11.6 % (0.0-10.0); %Neutrophils 58.9 % (42.0-75.0); Hematocrit 34.1 % (36.0-47.0); Hemoglobin 10.9 g/dL (12.0-16.0); Mean Corpuscular Hemoglobin 29.9 pg (27.0-31.0); Mean Corpuscular Volume 93.4 fL (78.0-98.0); Platelet Count 102 10x3/uL (130-400); Red Blood Cell (RBC) Count 3.65 mill/uL (4.20-5.40); White Blood Cell (WBC) Count 5.02 10x3/uL (4.8-10.8)
[2025-01-30 14:27] LABS: ALT (SGPT) 13 U/L (Less than 34); AST (SGOT) 39 U/L (11-34); Albumin 2.7 g/dL (3.1-4.5); Alkaline Phosphatase 87 U/L (40-110); Anion Gap 13 mmol/L (10-20); BUN (Urea Nitrogen) 9 mg/dL (9.8-20.1); Bilirubin, Total 1.1 mg/dL (0.3-1.2); Calc. Creatinine Clearance 165 mL/min (70-130); Calcium 8.2 mg/dL (7.8-10.44); Carbon Dioxide 27 mmol/L (22-29); Chloride 97 mmol/L (98-107); Globulin 3.5 g/dL (2.4-3.5); Glucose 110 mg/dL (70-105); Potassium 3.9 mmol/L (3.5-5.1); Sodium 133 mmol/L (136-145)
[2025-01-30] MEDS: Lactulose 20 GM (30 mL) UDCUP PO SCH (14:41)
[2025-01-31 05:29] LABS: #Basophils Less than 0.03 10x3/uL (0.0-0.2); #Eosinophils 0.16 10x3/uL (0.0-0.7); #Monocytes 0.63 10x3/uL (0.11-0.59); #Neutrophils 2.86 10x3/uL (1.40-6.50); %Basophils 0.4 % (0.0-1.0); %Eosinophils 3.2 % (0.0-10.0); %Lymphocytes 27.3 % (21.0-51.0); %Monocytes 12.5 % (0.0-10.0); %Neutrophils 56.4 % (42.0-75.0); Hematocrit 30.5 % (36.0-47.0); Hemoglobin 9.8 g/dL (12.0-16.0); Mean Corpuscular Hemoglobin 29.5 pg (27.0-31.0); Mean Corpuscular Volume 91.9 fL (78.0-98.0); Platelet Count 115 10x3/uL (130-400); Red Blood Cell (RBC) Count 3.32 mill/uL (4.20-5.40); White Blood Cell (WBC) Count 5.06 10x3/uL (4.8-10.8)
[2025-01-31 05:31] LABS: Anion Gap 10 mmol/L (10-20); BUN (Urea Nitrogen) 6 mg/dL (9.8-20.1); Calc. Creatinine Clearance 151 mL/min (70-130); Calcium 7.9 mg/dL (7.8-10.44); Carbon Dioxide 30 mmol/L (22-29); Chloride 97 mmol/L (98-107); Glucose 97 mg/dL (70-105); Potassium 3.7 mmol/L (3.5-5.1); Sodium 133 mmol/L (136-145)
[2025-02-01 05:14] LABS: #Basophils Less than 0.03 10x3/uL (0.0-0.2); #Eosinophils 0.13 10x3/uL (0.0-0.7); #Monocytes 0.49 10x3/uL (0.11-0.59); #Neutrophils 1.82 10x3/uL (1.40-6.50); %Basophils 0.6 % (0.0-1.0); %Eosinophils 4.0 % (0.0-10.0); %Lymphocytes 23.3 % (21.0-51.0); %Monocytes 15.2 % (0.0-10.0); %Neutrophils 56.6 % (42.0-75.0); Hematocrit 31.1 % (36.0-47.0); Hemoglobin 9.9 g/dL (12.0-16.0); Mean Corpuscular Hemoglobin 29.6 pg (27.0-31.0); Mean Corpuscular Volume 93.1 fL (78.0-98.0); Platelet Count 109 10x3/uL (130-400); Red Blood Cell (RBC) Count 3.34 mill/uL (4.20-5.40); White Blood Cell (WBC) Count 3.22 10x3/uL (4.8-10.8)
[2025-02-01 05:22] LABS: Anion Gap 10 mmol/L (10-20); BUN (Urea Nitrogen) 6 mg/dL (9.8-20.1); Calc. Creatinine Clearance 155 mL/min (70-130); Calcium 8.2 mg/dL (7.8-10.44); Carbon Dioxide 29 mmol/L (22-29); Chloride 99 mmol/L (98-107); Glucose 147 mg/dL (70-105); Potassium 4.4 mmol/L (3.5-5.1); Sodium 134 mmol/L (136-145)
[2025-02-01] MEDS: HYDROcodone/Acetaminophen 10/325 mg Tablet PO PRN (13:51)
[2025-02-01 14:32] VITALS: BP 138/74; TEMP 98.6
== END 2025-02-01 16:20 | DRG 451 ==
LOC: SDC 06:22 → SURG B 10:36 → OBSVTOIN 01-28 12:52
PROVIDERS: ADMIT Neurological Surgery; ATTEND Neurological Surgery
PROC: 01NB0ZZ Release Lumbar Nerve, Open Approach (ICD-10-PCS; principal; 2025-01-27)
PROC: 0SG3071 Fusion of Lumbosacral Joint with Autologous Tissue Substitute, Posterior Approach, Posterior Column, Open Approach (ICD-10-PCS; 2025-01-27)
PROC: 3E033XZ Introduction of Vasopressor into Peripheral Vein, Percutaneous Approach (ICD-10-PCS; 2025-01-27)
PROC: 01NR0ZZ Release Sacral Nerve, Open Approach (ICD-10-PCS; 2025-01-27)
PROC: 3E03329 Introduction of Other Anti-infective into Peripheral Vein, Percutaneous Approach (ICD-10-PCS; 2025-01-28)
PROC: 0T9B70Z Drainage of Bladder with Drainage Device, Via Natural or Artificial Opening (ICD-10-PCS; 2025-01-29)
DX: M48.061 Spinal stenosis, lumbar region without neurogenic claudication (principal); E87.1 Hypo-osmolality and hyponatremia; M51.16 Intervertebral disc disorders with radiculopathy, lumbar region; I10 Essential (primary) hypertension; Z79.82 Long term (current) use of aspirin; Z79.899 Other long term (current) drug therapy; Z88.8 Allergy status to other drugs, medicaments and biological substances; Z96.651 Presence of right artificial knee joint; Z98.51 Tubal ligation status; Z90.49 Acquired absence of other specified parts of digestive tract; K74.60 Unspecified cirrhosis of liver; D69.6 Thrombocytopenia, unspecified; Z88.5 Allergy status to narcotic agent; M79.7 Fibromyalgia; R50.9 Fever, unspecified; G89.29 Other chronic pain; R33.9 Retention of urine, unspecified; D69.59 Other secondary thrombocytopenia
CPT/HCPCS: 36415; 71045; 80048; 81001; 82140; 85025; C1713; C1889; J0169; J0665; J1100; J1171; J2270; J2405; J2550; J2704; J3010; J3373

== ENCOUNTER 2025-03-13 09:26 | Outpatient (CLI) | payer OTHER, MEDICAID ==
[2025-03-13] MEDS ORDERED: Iopamidol 370 76% 100 ML VIAL ONE (12:59)
== END 2025-03-13 09:27 | disposition home or self-care (01) ==
LOC: CT 09:26
PROVIDERS: ATTEND Physician Assistant Medical
DX: K21.9 Gastro-esophageal reflux disease without esophagitis (principal); K74.60 Unspecified cirrhosis of liver; K76.82 Hepatic encephalopathy; R16.1 Splenomegaly, not elsewhere classified; K76.89 Other specified diseases of liver; Z98.890 Other specified postprocedural states
CPT/HCPCS: 74170; Q9967